=== PATIENT | male | born 1945 | race Caucasian/White ===

== ENCOUNTER 2019-12-19 10:05 | Outpatient (CLI) | payer OTHER, SELFPAY ==
--- NOTE | 2019-12-19 10:21 | XR_ITS ---
WS: [id number] CHEST 2 VIEWS HISTORY: Shortness of breath COMPARISON: 09/20/2015 Lungs: Hyperinflated lungs with bullous disease in the upper lung mcknight. Marked flattening of the di aphragms. No nodules or pneumonia. Cardiac size: Normal. Mediastinum/Aorta: Mild atherosclerosis aorta. Mild enlargement of the pulmonary arteries. Bones: Normal. XR/XR chest 2V* [id number] IMPRESSION: 1. Severe bullous emphysema. 2. Mild pulmonary hypertension suspected. 3. Partially calcified aorta.
[2019-12-19 11:30] LABS: Basophils # 0.1 10^3/uL (0.0-0.1); Basophils % 0.9 %; Eosinophils # 0.1 10^3/uL (0.0-0.8); Eosinophils % 2.1 %; Hematocrit 48.7 % (42.0-52.0); Hemoglobin 15.3 g/dL (11.7-16.6); Lymphocytes # 0.8 10^3/uL (0.8-4.8); Lymphocytes % 13.9 %; Mean Corpuscular HGB Conc 31.4 g/dL (30.0-36.0); Mean Corpuscular Hemoglobin 28.8 pg (28.0-34.0); Mean Corpuscular Volume 91.5 fL (80-94); Mean Platelet Volume 10.6 fL (7.4-10.4); Monocytes # 0.5 10^3/uL (0.2-0.9); Monocytes % 9.6 %; Neutrophils # 4.1 10^3/uL (1.8-7.7); Neutrophils % 73.1 %; Nucleated Red Blood Cells % 0 %; Platelet Count 145 10^3/cmm (130-400); Red Blood Count 5.32 10^6/uL (4.1-5.3); White Blood Count 5.6 10^3/uL (4.0-10.0)
== END 2019-12-19 10:06 | disposition home or self-care (01) ==
LOC: RAD 10:19
PROVIDERS: Family Provider Family Medicine; PCP Nurse Practitioner; Visit Provider Internal Medicine Critical Care Medicine
DX: R06.02 Shortness of breath (principal); J44.9 Chronic obstructive pulmonary disease, unspecified; I70.0 Atherosclerosis of aorta
CPT/HCPCS: 36415; 71046; 85025

== ENCOUNTER 2020-02-08 09:11 | Outpatient (CLI) | payer OTHER, SELFPAY ==
--- NOTE | 2020-02-08 12:50 | PFTS_ITS ---
Date of Study:02/08/20 Date of Dictation: MECHANICS: Forced vital capacity (FVC) is reduced. Forced expiratory volume in one second (FEV1) is reduced. FEV1/FVC is reduced. FLOW VOLUME LOOP: Reduced flow at all lung volumes with severe scooping. LUNG VOLUMES: Total lung capacity (TLC) is increased. Residual volume (RV) is increased. DIFFUSING CAPACITY FOR CARBON MONOXIDE: Moderately reduced. INTERPRETATION: The pulmonary function tests are consistent with very severe airflow obstruction. Lung volumes are consistent with hyperinflation and air trapping. Gas exchange (DLCO) is moderately reduced. MTDD
== END 2020-02-08 09:12 | disposition home or self-care (01) ==
LOC: RT 09:12
PROVIDERS: PCP Nurse Practitioner; Visit Provider Internal Medicine Critical Care Medicine
DX: J44.9 Chronic obstructive pulmonary disease, unspecified (principal)
CPT/HCPCS: 94010; 94726; 94729

== ENCOUNTER 2020-03-12 14:52 | Outpatient (CLI) | payer OTHER, SELFPAY ==
--- NOTE | 2020-03-12 14:30 | CT_ITS ---
WS: [id number] CT CHEST WITHOUT INTRAVENOUS CONTRAST HISTORY: Shortness of breath TECHNIQUE: Contiguous 5 mm axial imaging performed on the thorax. Coronal and sagittal reformats are submitted. All CT scans at [facility] use at least one of these dose optimization techniq ues: automated exposure control; mA and/or kV adjustment per patient size (includes targeted exams wh ere dose is matched to clinical indication); or iterative reconstruction. CONTRAST: Omnipaque 300; 95 mL IV. DLP: 500.99 mGy.cm COMPARISON: None available. Lungs and central airway: Severe pulmonary hyperexpansion. Extensive bullous and bleb formation. Slig htly spiculated nodule at the LEFT apex measures 12 mm. Pleura: No pleural effusions. There is pleural thickening bilaterally. Some of these areas of pleural thickening containing calcifications. Heart and pericardium: Mildly enlarged cardiac chambers. No pericardial effusion. Mediastinum and isaiah: No mediastinum or hilar adenopathy. Vessels: Mild atherosclerosis aorta. Pulmonary artery size is equal to the aorta. Chest wall and lower neck: No soft tissue masses. Upper abdomen: Incompletely visualized abdominal aortic aneurysm. Aneurysm begins just below the leve l of the SMA. Maximum transverse diameter 5.9 cm. Osseous structures: Mild increase in thoracic kyphosis. Notified Leesa Lin MD at 03/12/2020 4:07 PM. Message LEFT on the nurse line at Dr. Lin's office to review report. CT/CT chest wo con [id number] IMPRESSION: 1. Severe emphysema. 2. Spiculated nodule measures 12 mm LEFT upper lobe. Recommend follow-up in 3 -6 months. 3. Incompletely visualized large abdominal aortic aneurysm begins just below t he level of the SMA with a maximum diameter 5.[address] angiogram abdo javed aorta for further evaluation and characterization.
--- NOTE | 2020-03-12 15:00 | USCV_ITS ---
David Snyder Age: 74 Gender: M : 1945 Exam Date: 03/12/2020 15:08 Ordering Phys: Leesa Lin MD Technologist: DIANNA STONE Exam Location: [facility] – [place], [place] Indication: RV HEART FAILURE BP: / HR: 61 Rhythm: Sinus Technical Quality: Good MEASUREMENTS (Male / Female) Normal Values 2D ECHO LV Diastolic Diameter PLAX 5.4 cm 4.2 - 5.9 / 3.9 - 5.3 cm LV Systolic Diameter PLAX 4.1 cm IVS Diastolic Thickness 1.0 cm 0.6 - 1.0 / 0.6 - 0.9 cm IVS Systolic Thickness 1.3 cm LVPW Diastolic Thickness 1.0 cm 0.6 - 1.0 / 0.6 - 0.9 cm LVPW Systolic Thickness 1.9 cm LVOT Diameter 2.2 cm LV Ejection Fraction 2D Teich 47.3 % LV Ejection Fraction MOD 2C 56.7 % LV Ejection Fraction 2C AL 58.7 % LA Diameter 3.3 cm LA Width 2.5 cm LA Height 4.6 cm RA Width 3.0 cm RA Height 3.7 cm M-MODE LV Diastolic Diameter MM 6.2 cm 4.2 - 5.9 / 3.9 - 5.3 cm LV Systolic Diameter MM 4.8 cm LV Ejection Fraction MM Teich 43.7 % IVS Diastolic Thickness MM 1.2 cm 0.6 - 1.0 / 0.6 - 0.9 cm IVS Systolic Thickness MM 1.4 cm LVPW Diastolic Thickness MM 0.9 cm 0.6 - 1.0 / 0.6 - 0.9 cm LVPW Systolic Thickness MM 1.5 cm Aortic Annulus Diameter 3.5 cm LA Ao Ratio MM 1.0 MV E Point Septal Separation 0.9 cm DOPPLER AV Peak Velocity 104.0 cm/s LVOT Peak Velocity 80.0 cm/s AV Area Cont Eq vti 2.8 cm squared AV Area Cont Eq pk 2.8 cm squared MV Peak Velocity 113.0 cm/s MV Area PHT 8.8 cm squared Mitral E to A Ratio 6.8 MV E' Velocity 2.0 cm/s Mitral E to MV E' Ratio 40.5 Mitral E to LV E' Lateral Ratio 45.7 Mitral E to LV E' Septal Ratio 37.6 TR Peak Velocity 135.0 cm/s TR Peak Gradient 7.3 mmHg Right Atrial Pressure 3.0 mmHg Pulmonary Artery Systolic Pressu 10.3 mmHg PV Peak Velocity 83.0 cm/s RV Acceleration Time 0.1 s FINDINGS Left Ventricle Diffuse hypokinesia left ventricle with ejection fraction around 43%. Small aneurysmal dilatation of the LV apex Right Ventricle Normal right ventricular size and systolic function. Right Atrium Normal right atrial size. Left Atrium Normal left atrial size. Mitral Valve Thickened mitral valve. Trace mitral valve regurgitation. Aortic Valve Thickened aortic valve. Mild aortic valve regurgitation. Tricuspid Valve Trace tricuspid valve regurgitation. Pulmonic Valve Trace pulmonary valve regurgitation. Pericardium No pericardial effusion. Aorta Normal aortic annulus size. CONCLUSIONS Diffuse hypokinesia left ventricle with ejection fraction around 43%. Small aneurysmal dilatation of the LV apex Thickened mitral valve. Trace mitral valve regurgitation. Thickened aortic valve. Mild aortic valve regurgitation. Trace tricuspid valve regurgitation. Trace pulmonary valve regurgitation. Estimated pulmonary artery peak systolic pressure of 10 mmHg, could be misleading because of the poor Doppler signals There is no pericardial effusion. There are no intracardiac masses. Compared to the study from 03/28/2015, there is significant improvement of the LV ejection fraction from 25% to 43% Dr Adria Phillips MD [facility] (Electronically Signed) Final Date: 12 March 2020 23:53 S
== END 2020-03-12 14:53 | disposition home or self-care (01) ==
PROVIDERS: PCP Nurse Practitioner; Visit Provider Internal Medicine Critical Care Medicine
DX: R06.02 Shortness of breath (principal); I50.810 Right heart failure, unspecified; I08.3 Combined rheumatic disorders of mitral, aortic and tricuspid valves; J44.9 Chronic obstructive pulmonary disease, unspecified
CPT/HCPCS: 71250; 93306

== ENCOUNTER 2020-03-25 10:55 | Outpatient (CLI) | payer OTHER, SELFPAY ==
[2020-03-25 12:06] LABS: Alanine Aminotransferase 16 U/L (0-41); Albumin Level 3.9 g/dL (3.5-5.2); Alkaline Phosphatase 78 IU/L (40-130); Anion Gap 12.4 (5-19); Aspartate Amino Transferase 15 U/L (0-40); Blood Urea Nitrogen 25 mg/dL (8-23); Calcium 8.5 mg/dL (8.5-10.5); Carbon Dioxide 29 mmol/L (22-29); Chloride 103 mmol/L (98-107); Globulin 3.3 g/dL (1.3-4.6); Glucose 102 mg/dL (65-115); Osmolality Calculated 287 mOsm/kg (285-295); Potassium 4.4 mmol/L (3.5-5.1); Sodium 140 mmol/L (136-145); Total Bilirubin 0.4 mg/dL (0.15-1.2); Total Protein 7.2 g/dL (6.6-8.7)
== END 2020-03-25 10:56 | disposition home or self-care (01) ==
PROVIDERS: PCP Nurse Practitioner; Visit Provider Internal Medicine Critical Care Medicine
DX: J44.9 Chronic obstructive pulmonary disease, unspecified (principal)
CPT/HCPCS: 80053

== ENCOUNTER 2020-07-05 09:49 | Outpatient (CLI) | payer OTHER, SELFPAY ==
--- NOTE | 2020-07-05 10:15 | CT_ITS ---
WS: [id number] CT scan of the chest without IV contrast, additional two-dimensional coronal and sagittal reconstruct ion was performed. 07/05/2020 Clinical Data: Pulmonary nodule Comparison: CT chest, 03/12/2020. DLP: 617.[address] scans at [facility] use at least one of these dose optimization techniques: automat ed exposure control; mA and/or kV adjustment per patient size (includes targeted exams where dose is matched to clinical indication); or iterative reconstruction. Findings: The left upper lobe shows no nodule. The previously described nodule has resolved. Severe bullous emp hysema seen in the upper lobes. No masses or effusions are seen. There are scattered areas of pleural thickening throughout the lungs . The heart size is normal with no pericardial effusion. There is coronary artery calcification. The trachea bifurcates normally into the bronchi. The pulmonary arterial system and thoracic aorta demons trate no abnormalities or dilatations. There is no axillary or significant mediastinal adenopathy. The upper abdomen demonstrates the abdominal aortic aneurysm which measures 6.4 cm in greatest transv erse diameter. There is a low-density lesion of the right kidney which is probably a 2.[address]/CT chest wo con [id number] Impression: 1. The left upper lobe nodule has resolved. 2. Severe bilateral lateral emphysema. 3. Abdominal aortic aneurysm with greatest transverse dimension of 6.4 cm.
== END 2020-07-05 09:50 | disposition home or self-care (01) ==
LOC: RADWPI 09:52
PROVIDERS: PCP Nurse Practitioner; Visit Provider Internal Medicine Critical Care Medicine
DX: R91.1 Solitary pulmonary nodule (principal); J43.9 Emphysema, unspecified; I71.4 Abdominal aortic aneurysm, without rupture
CPT/HCPCS: 71250

== ENCOUNTER 2020-09-16 10:04 | Inpatient (IN) | payer OTHER, MEDICARE, SELFPAY ==
[2020-09-16] VITALS (19 sets, daily range): BP systolic 110–151; BP diastolic 70–95; PULSE 87–117; RESP 10–32; TEMP 36.6–36.9; O2SAT 90–98; BMI 19.9
--- NOTE | 2020-09-16 10:25 | XR_ITS ---
WS: [id number] Exam: XR chest 1V portable [id number] Date/Time of Exam: 09/16/2020 10:31 AM Reason For Exam: dyspena Comparison 12/19/2019. There is infiltrate in the lingula and left lower lobe suggesting pneumonia. Areas of plaque atelecta sis in both lung bases. Advanced changes of bullous emphysema in the mid and upper lung zones. Heart size is normal. The mediastinum is not widened. No pneumothorax or pleural effusion. Ill-defined nodu lar density superimposing the right lower lung zone which may represent a nipple shadow. XR/XR chest 1V portable [id number] IMPRESSION: 1. Infiltrate in the lingula and left lower lobe suggesting pneumonia. 2. Areas of plaque atelectasis in the bilateral lower lung zones. 3. Advanced emphysematous changes.
--- NOTE | 2020-09-16 10:26 | CT_ITS ---
WS: [id number] CTA OF THE CHEST WITH PULMONARY EMBOLISM PROTOCOL TECHNIQUE: High-resolution contrast enhanced CTA of the chest with coronal and sagittal reformatted i mages with pulmonary embolism protocol. MIP images are also reviewed. CLINICAL INFORMATION: dyspnea/COVID COMPARISON: July 05, 2020 DLP: 547.[address] scans at [facility] use at least one of these dose optimization techniques: automat ed exposure control; mA and/or kV adjustment per patient size (includes targeted exams where dose is matched to clinical indication); or iterative reconstruction. FINDINGS: Advanced chronic emphysematous changes. Proximal main pulmonary arteries are normal. Normal segmental and subsegmental pulmonary arteries. No evidence of pulmonary embolus. Aortic calcification. Normal caliber thoracic aorta. Interstitial thickening with interstitial infilt rates in the left greater than right lower lobe. Patchy infiltrates in the left lower lobe and lingul a. Upper lobes are well aerated. No mediastinal or hilar lymphadenopathy. No axillary lymphadenopathy . Adrenal glands are normal. Normal GE junction. Upper abdominal aortic aneurysm measuring 4.3 x 5.9 cm AP by transverse partially visualized. This appears unchanged since July 05, 2020 CT/CT angio chest PE protcl [id number] IMPRESSION: 1. Proximal main pulmonary arteries are normal. No evidence of pulmonary embol us. 2. Advanced chronic emphysematous changes. 3. Interstitial infiltrates the left greater than right lower lobes. Patchy in filtrates in the lingula. Recommend correlation for pneumonia. 4. Abdominal aortic aneurysm partially visualized upper abdomen measuring 4.3 x 5.9 cm appears unchanged from the prior chest CT July 05, 2020. This can be followed up with CTA abdomen pelvis Notified Keith Mathews DO at 09/16/2020 12:49 PM.
--- NOTE | 2020-09-16 10:27 | W.ED.COVID ---
HPI - COVID General: Chief Complaint: COVID symptoms Stated Complaint: COVID, DYSPNEA Time Seen by Provider: 09/16/20 10:08 Triage information: Has fever, cough or shortness of breath. Exposure to COVID + person last 14 days History of Present Illness: HPI Narrative: 74-year-old male with a history of COPD and congestive heart failure states he tested +1-week ago for Covid at [facility]. He was also given a medication there I presume it was probably IV these dexamethasone were calling to get the old records. He is chronically on 2-3 L by nasal cannula at home he had increase it to 6 L. EMS reports they gave him a nebulizer prior to arrival that did help some. They reported on arrival there his oxygen sat was around 81% on 2 L by nasal cannula. Patient has a history of asbestosis with exposure in the late 60s early 70s. MD complaint: known COVID positive Prior covid testing: yes, results known Prior testing date: 09/09/20 COVID 19 common symptoms: positive fever(s), chills, cough, productive cough and dyspnea; negative throat pain, nasal congestion, nausea, vomiting or diarrhea COVID 19 other sytmptoms: positive requiring more oxygen and respiratory distress; negative chest pain Onset (ago): hour(s) Severity: moderate Pertinent comorbid conditions: diabetes, hypertension, COPD/respiratory disease, chronic kidney disease and recent ED visit for same complaint COVID Results: No Data to Display Review of Systems Const: Reports: fever(s) ENMT: Denies: throat pain, ear or mastoid pain, nasal discharge or nasal congestion Card: Denies: chest pain, edema, dyspnea on exertion or orthopnea Resp: Reports: dyspnea and productive cough GI: Denies: abdominal pain, nausea, vomiting, hematemesis, coffee ground emesis, diarrhea, constipation, bloating, hematochezia or melena : Denies: flank pain, dysuria, urinary frequency or urinary urgency Skin/Breast: Denies: rash or pruritus [facility] ED PFSH: Medical History (Updated 09/16/20 @ 14:01 by Danny Hansen MD) Anxiety CHF (congestive heart failure) COPD (chronic obstructive pulmonary disease) Diabetes 1.5, managed as type 2 Surgical History H/O eye surgery Hx of tonsillectomy Family History Father CAD (coronary artery disease) Diabetes Cancer Colon Mother Diabetes Social History Smoking and tobacco status: former smoker Quit status (tobacco): has quit using tobacco Year quit tobacco: 2005 - 2PPD x 50 Years Second hand smoke exposure: No Alcohol intake: former Lives independently: Yes Household members: spouse Marital status: service: Yes Current occupational status: retired History of recent travel: No Current gender identity: Male Physical Exam Const: COMMON NORMALS: no acute distress GENERAL APPEARANCE: cooperative and comfortable ORIENTATION/CONSCIOUSNESS: Yes awake, Yes oriented to person, Yes oriented to place and Yes oriented to time HENMT: COMMON NORMALS: normocephalic, atraumatic and hearing grossly normal bilaterally HEAD & SCALP: normocephalic and atraumatic Neck/C-Spine: COMMON NORMALS: no JVD Resp: COMMON NORMALS: normal respiratory effort, No retractions, No use of accessory muscles and clear to auscultation bilaterally AUSCULTATION: clear to auscultation bilaterally Cardio: COMMON NORMALS: no JVD, regular rate, regular rhythm and No murmurs present (Cardio) RATE: regular rate RHYTHM: regular rhythm GI: COMMON NORMALS: Soft to palpation and No hepatosplenomegaly present AUSCULTATION: Yes normoactive bowel sounds PALPATION: Yes Soft to palpation, No Tenderness to palpation present (GI), No Guarding due to palpation present (GI) and Yes No hepatosplenomegaly present Extremity: COMMON NORMALS: normal to inspection, capillary refill normal, no clubbing, cyanosis or edema, no calf tenderness and no pedal edema Neuro: SENSORIUM/ORIENTATION: Yes oriented to person, Yes oriented to place and Yes oriented to time Skin: COMMON NORMALS: no rashes or lesions noted GENERAL SKIN EXAM: no rashes or lesions noted Course Vital Signs: Vital signs: Vital Signs Temperature 98.4 F 09/16/20 13:38 Pulse Rate 106 H 09/16/20 13:38 Respiratory Rate 10 L 09/16/20 13:38 Blood Pressure 127/86 09/16/20 13:38 Pulse Oximetry 94 09/16/20 13:38 MDM - COVID MDM Narrative: Medical decision making narrative: Patient has severe bullous emphysema. Exacerbated by Covid he may have some underlying bacterial pneumonia we will start him on Zosyn and Levaquin discussed with Dr. Mayberry will admit for management and supportive cares antibiotics. Lab Data: Labs: Lab Results 09/16/20 09/16/20 09/16/20 Range/Units 10:16 10:16 10:16 WBC 6.0 (4.0-10.0) 10^3/ uL RBC 4.88 (4.1-5.3) 10^6/u L Hgb 14.6 (11.7-16.6) g/dL Hct 43.7 (42.0-52.0) % MCV 89.5 (80-94) fL MCH 29.9 (28.0-34.0) pg MCHC 33.4 (30.0-36.0) g/dL RDW 12.5 (12.1-15.1) % Plt Count 188 (130-400) 10^3/c mm MPV 10.6 H (7.4-10.4) fL Neut % (Auto) 90.6 % Lymph % (Auto) 2.5 % Lincoln % (Auto) 4.7 % Eos % (Auto) 0.2 % Baso % (Auto) 0.2 % Neut # (Auto) 5.43 (1.8-7.7) 10^3/u L Lymph # (Auto) 0.2 L (0.8-4.8) 10^3/u L Lincoln # (Auto) 0.3 (0.2-0.9) 10^3/u L Eos # (Auto) 0.0 (0.0-0.8) 10^3/u L Baso # (Auto) 0.0 (0.0-0.1) 10^3/u L Nucleated RBC % (a uto) 0 % Nucleated RBCs # 0.0 /100WBC D-Dimer 3.80 H (0-0.59) ug/mIFE U Specimen Type Sample Site ABG pH (7.35-7.45) ABG pCO2 (35-45) mmHg ABG pO2 (80.0-100.0) mmH g ABG HCO3 (22-26) mmol/L ABG O2 Saturation ABG Base Excess (-2.0-2.0) mmol/ L Bala Test A-a O2 Gradient (5-10) mmHg Hematocrit (42-52) % Hgb O2 Saturation (95-100) % Carboxyhemoglobin (0.4-20.1) %THgb Methemoglobin (0.4-1.5) % Total Hemoglobin (14-18) g/dL Ionized Calcium (1.1-1.4) mmol/L O2 Delivery Device O2 Liters/Min % [employer] Machine ID Sodium 138 (136-145) mmol/L Potassium 5.0 (3.5-5.1) mmol/L Chloride 99 (98-107) mmol/L Carbon Dioxide 27 (22-29) mmol/L Anion Gap 17.0 (5-19) BUN 24 H (8-23) mg/dL Creatinine 1.1 (0.7-1.2) mg/dL GFR Calculation Not Reportable Glucose 194 H (65-115) mg/dL Calculated Osmolal ity 295 (285-295) mOsm/k g Calcium 8.9 (8.5-10.5) mg/dL Total Bilirubin 0.9 (0.15-1.2) mg/dL AST 11 (0-40) U/L ALT 17 (0-41) U/L Alkaline Phosphata se 60 (40-130) IU/L Creatine Kinase 41 (39-308) U/L C-Reactive Protein 115.6 H (0.0-4.9) mg/L Total Protein 7.8 (6.6-8.7) g/dL Albumin 3.2 L (3.5-5.2) g/dL Globulin 4.6 (1.3-4.6) g/dL 09/16/20 Range/Units 10:39 WBC (4.0-10.0) 10^3/ uL RBC (4.1-5.3) 10^6/u L Hgb (11.7-16.6) g/dL Hct (42.0-52.0) % MCV (80-94) fL MCH (28.0-34.0) pg MCHC (30.0-36.0) g/dL RDW (12.1-15.1) % Plt Count (130-400) 10^3/c mm MPV (7.4-10.4) fL Neut % (Auto) % Lymph % (Auto) % Lincoln % (Auto) % Eos % (Auto) % Baso % (Auto) % Neut # (Auto) (1.8-7.7) 10^3/u L Lymph # (Auto) (0.8-4.8) 10^3/u L Lincoln # (Auto) (0.2-0.9) 10^3/u L Eos # (Auto) (0.0-0.8) 10^3/u L Baso # (Auto) (0.0-0.1) 10^3/u L Nucleated RBC % (a uto) % Nucleated RBCs # /100WBC D-Dimer (0-0.59) ug/mIFE U Specimen Type Arterial Sample Site Radial, left ABG pH 7.42 (7.35-7.45) ABG pCO2 41.5 (35-45) mmHg ABG pO2 80.9 (80.0-100.0) mmH g ABG HCO3 26.8 H (22-26) mmol/L ABG O2 Saturation 96.0 ABG Base Excess 2.0 (-2.0-2.0) mmol/ L Bala Test Pos A-a O2 Gradient 2.0 L (5-10) mmHg Hematocrit 46.1 (42-52) % Hgb O2 Saturation 94.1 L (95-100) % Carboxyhemoglobin 1.1 (0.4-20.1) %THgb Methemoglobin 0.8 (0.4-1.5) % Total Hemoglobin 15.0 (14-18) g/dL Ionized Calcium 1.2 (1.1-1.4) mmol/L O2 Delivery Device Nc O2 Liters/Min 5.0 % [employer] Cutter Machine ID Cak Sodium 137.0 (136-145) mmol/L Potassium 4.7 (3.5-5.1) mmol/L Chloride (98-107) mmol/L Carbon Dioxide (22-29) mmol/L Anion Gap (5-19) BUN (8-23) mg/dL Creatinine (0.7-1.2) mg/dL GFR Calculation Glucose 192.0 H (65-115) mg/dL Calculated Osmolal ity (285-295) mOsm/k g Calcium (8.5-10.5) mg/dL Total Bilirubin (0.15-1.2) mg/dL AST (0-40) U/L ALT (0-41) U/L Alkaline Phosphata se (40-130) IU/L Creatine Kinase (39-308) U/L C-Reactive Protein (0.0-4.9) mg/L Total Protein (6.6-8.7) g/dL Albumin (3.5-5.2) g/dL Globulin (1.3-4.6) g/dL COVID Results: No Data to Display Discharge Plan Discharge Patient Disposition: Admitted As Inpatient Admit Provider: Danny Hansen Clinical Impression: Acute exacerbation of chronic obstructive pulmonary disease, H/O asbestos exposure, COVID-19 Condition: Stable Coding Level of Care Code ED Social Work Manager for Jacklyn Brown
[2020-09-16 10:32] LABS: Basophils % 0.2 %; Eosinophils % 0.2 %; Hematocrit 43.7 % (42.0-52.0); Hemoglobin 14.6 g/dL (11.7-16.6); Lymphocytes # 0.2 10^3/uL (0.8-4.8); Lymphocytes % 2.5 %; Mean Corpuscular HGB Conc 33.4 g/dL (30.0-36.0); Mean Corpuscular Hemoglobin 29.9 pg (28.0-34.0); Mean Corpuscular Volume 89.5 fL (80-94); Mean Platelet Volume 10.6 fL (7.4-10.4); Monocytes # 0.3 10^3/uL (0.2-0.9); Monocytes % 4.7 %; Neutrophils # 5.43 10^3/uL (1.8-7.7); Neutrophils % 90.6 %; Nucleated Red Blood Cells % 0 %; Platelet Count 188 10^3/cmm (130-400); Red Blood Count 4.88 10^6/uL (4.1-5.3); Red Cell Distribution Width 12.5 % (12.1-15.1)
[2020-09-16 10:48] LABS: Alanine Aminotransferase 17 U/L (0-41); Albumin Level 3.2 g/dL (3.5-5.2); Alkaline Phosphatase 60 IU/L (40-130); Aspartate Amino Transferase 11 U/L (0-40); Blood Urea Nitrogen 24 mg/dL (8-23); C Reactive Protein 115.6 mg/L (0.0-4.9); Calcium 8.9 mg/dL (8.5-10.5); Carbon Dioxide 27 mmol/L (22-29); Chloride 99 mmol/L (98-107); Creatine Phosphokinase 41 U/L (39-308); Globulin 4.6 g/dL (1.3-4.6); Glucose 194 mg/dL (65-115); Osmolality Calculated 295 mOsm/kg (285-295); Sodium 138 mmol/L (136-145); Total Bilirubin 0.9 mg/dL (0.15-1.2); Total Protein 7.8 g/dL (6.6-8.7)
[2020-09-16 10:51] LABS: ABG PCO2 41.5 mmHg (35-45); ABG PH Result 7.42 (7.35-7.45); Arterial Blood Gas Hematocrit 46.1 % (42-52); Blood Gas Allen Test Pos; Blood Gas Operator Identificat CAK; Blood Gas Sample Site Radial, left; Blood Gas Sample Type Arterial; Carboxyhemoglobin 1.1 %THgb (0.4-20.1); HCO3 ABG 26.8 mmol/L (22-26); HGB O2 Sat 94.1 % (95-100); Ionized Calcium Level - ABG 1.2 mmol/L (1.1-1.4); Methemoglobin 0.8 % (0.4-1.5); Oxygen Device NC; PO2 ABG 80.9 mmHg (80.0-100.0); Potassium Level - ABG 4.7 mmol/L (3.5-5.0)
[2020-09-16] MEDS: dexamethasone 4 mg/mL INJ 6 MG IVP (11:00)
[2020-09-16] MEDS: iohexol 350 mg/mL 100 mL Btl IV (12:27)
[2020-09-16] MEDS: piperacillin-tazobactam 3.375 GM in sodium chloride 0.9% (plus) 50 ML IV ×2 (13:08→18:13)
[2020-09-16] MEDS: levofloxacin-dextrose 5 % 750 MG/150 ML PREMIX 100 MG IV (13:08)
--- NOTE | 2020-09-16 13:45 | P.HP_ITS ---
Providers/Chief Complaint Admitting Physician: Danny Hansen MD Primary Care Provider: PATSY Woods Chief Complaint: COVID, DYSPNEA History of Present Illness David Snyder is a 74 year old male with a past medical history of gold class B COPD, on 2 L nasal cannula, [id number] history of smoking, quit smoking over 15 years ago, last FEV1 over FVC was 27%, moderate reduction in DLCO, emphysema, history of asbestos exposure with pleural thickening, systolic heart failure EF of 43% with global hypokinesia and aneurysmal dilation of the apex, type 2 diabetes mellitus, who presents to [facility] due to worsening shortness of breath,, fevers, fatigue, malaise, after testing positive for Covid at [facility] roughly a week ago. Patient tells me that he has been feeling more short of breath, more shortness of breath with exertion, fatigue, m alaise, nonproductive cough. Denies any chest pain, denies palpitations, denies hematemesis, denies diarrhea, denies any loss of taste, denies any loss of smell. In the emergency room patient was found to be in hypoxic respiratory failure, placed on BiPAP, currently on high flow, doing well on high flow, denying any shortness of breath, not respiratory distress. Review of Systems Const: Reports: fever(s); Denies: chills, fatigue or malaise Eyes: Denies: change in vision or blurry vision ENMT: Denies: nasal congestion Card: Denies: chest pain or palpitations Resp: Reports: dyspnea; Denies: productive cough, non-productive cough or wheezing GI: Denies: abdominal pain, nausea, vomiting, hematemesis, diarrhea, constipation, hematochezia or melena : Denies: flank pain, difficulty urinating, dysuria or urinary frequency Musc: Denies: neck pain or back pain Skin/Breast: Denies: rash Neuro: Denies: headache(s), dizziness or vertigo Psych: Denies: anxiety or depression Endo: Denies: polyuria or polydipsia Medications/Allergies Home Medications Medication Instructions Recorded Confirmed Last Taken Type Qunal 100 mg PO DAILY 12/19/19 09/16/20 09/15/20 History albuterol sulfate 2.5 mg INHALATION Q6H PRN 12/19/19 09/16/20 Unknown History albuterol sulfate 90 mcg/actuation 2 puff INHALATION Q6H PRN 12/19/19 09/16/20 Unknown History aerosol inhaler cinnamon bark 500 mg capsule 1,000 mg PO DAILY@ cap 12/19/19 09/16/20 09/15/20 History furosemide 40 mg tablet 40 mg PO DAILY@12/19/19 09/16/20 09/15/20 History lorazepam 1 mg tablet 1 mg PO TID PRN 12/19/19 09/16/20 Unknown History potassium chloride 20 mEq 20 meq PO DAILY@12/19/19 09/16/20 09/15/20 History tablet,extended release procyanidolic oligomers 50 mg 200 mg PO DAILY@ cap 12/19/19 09/16/20 09/15/20 History capsule budesonide-formoterol HFA 160 2 puff INHALATION BID #10.2 gm 03/26/20 09/16/20 09/15/20 Rx mcg-4.5 mcg/actuation aerosol inhaler cetirizine 10 mg PO DAILY@09/16/20 09/16/20 09/15/20 History cholecalciferol (vitamin D3) 50 mcg PO DAILY@09/16/20 09/16/20 09/15/20 History [Vitamin D3] prednisone 5 mg PO DAILY 09/16/20 09/16/20 Unknown History sertraline 75 mg PO DAILY 09/16/20 09/16/20 Unknown History tiotropium bromide [Spiriva 2 inh INHALATION DAILY@09/16/20 09/16/20 09/15/20 History Respimat] Allergies Allergy/AdvReac Type Severity Reaction Status Date / Time No Known Allergies Allergy Verified 03/25/20 10:42 PFSH Acute PFSH: Medical History (Updated 09/16/20 @ 14:01 by Danny Hansen MD) Anxiety CHF (congestive heart failure) COPD (chronic obstructive pulmonary disease) Diabetes 1.5, managed as type 2 Surgical History H/O eye surgery Hx of tonsillectomy Family History Father CAD (coronary artery disease) Diabetes Cancer Colon Mother Diabetes Social History Smoking and tobacco status: former smoker Quit status (tobacco): has quit using tobacco Year quit tobacco: 2005 - 2PPD x 50 Years Second hand smoke exposure: No Alcohol intake: former Lives independently: Yes Household members: spouse Marital status: service: Yes Current occupational status: retired History of recent travel: No Current gender identity: Male Vitals/I&O/Wt Last Vital Signs Temp 98.4 F 09/16/20 13:38 Pulse 106 H 09/16/20 13:38 Resp 10 L 09/16/20 13:38 BP 127/86 09/16/20 13:38 Pulse Ox 94 09/16/20 13:38 Weight last 48 hrs Weight 61.235 kg Physical Exam Const: COMMON NORMALS: no acute distress and patient oriented x3 GENERAL APPEARANCE: cooperative and comfortable HENMT: COMMON NORMALS: normocephalic HEAD & SCALP: normocephalic Eye: COMMON NORMALS: Equal, round and reactive pupils present and EOMs intact bilaterally GENERAL EYE: appearance normal, both eyes and all related structures PUPIL: Yes Equal, round and reactive pupils present Neck/C-Spine: COMMON NORMALS: full ROM, no lymphadenopathy, no JVD and Thyroid normal THYROID: Thyroid normal Lymph: LYMPHATIC: no lymphadenopathy noted Resp: COMMON NORMALS: normal respiratory effort, No retractions and No use of accessory muscles AUSCULTATION: wheezes and diminished lung sounds bilateral in the lower lung mcknight Cardio: COMMON NORMALS: no JVD, regular rate, regular rhythm, S1 normal heart sound present, S2 normal heart sound present, No gallops present (Cardio), No clicks present (Cardio) and No murmurs present (Cardio) RATE: regular rate RHYTHM: regular rhythm HEART SOUNDS: S1 normal heart sound present and S2 normal heart sound present GI: COMMON NORMALS: Normal to inspection, nondistended, normoactive bowel s ounds present, Soft to palpation, non-tender and No hepatosplenomegaly present PALPATION: Yes Soft to palpation and Yes No hepatosplenomegaly present Extremity: COMMON NORMALS: normal to inspection, full ROM and no pedal edema Neuro: COMMON NORMALS: patient oriented x3, CN's II-XII intact bilaterally, moves all extremities and no focal motor deficits Psych: COMMON NORMALS: mental status grossly normal, Normal thought process present and cooperative THOUGHT PROCESS: Normal thought process present Data : 09/16/20 10:16 09/16/20 10:16 Micro: Microbiology 09/16/20 12:12 Blood Culture - Preliminary Blood SPECIMEN COLLECTED 09/16/20 10:16 Blood Culture - Preliminary Blood SPECIMEN COLLECTED A&P Assessment and plan (1) Acute respiratory failure with hypoxia: -Secondary to COPD, COVID-19 pneumonia, secondary bacterial pneumonia Plan: -Admit to viral ICU -Patient is DNR/DNI, confirmed with patient multiple times -Full dose Lovenox for hypercoagulability prophylaxis -We will start him on Decadron -Insulin sliding scale, monitor blood sugars -Convalescent plasma -Remdesivir -Broad-spectrum antibiotic therapy vancomycin, Zosyn, azithromycin -Sputum cultures, blood cultures, urine bacterial antigens -Patient tested positive followed [place], will repeat rapid Covid, and Covid PCR -Monitor respiratory status closely -High flow during the day, BiPAP during the night, BiPAP as needed -Echocardiogram, Lasix 40 mg IV daily, daily I's and O's -Vitamin C, zinc -Advair, Spiriva, albuterol -Incentive spirometer use, Acapella -Encouraged to get up out of bed Status: Acute (2) Pneumonia due to COVID-19 virus: Status: Acute (3) Secondary bacterial pneumonia: Status: Acute (4) Systolic CHF: Status: Acute (5) Acute exacerbation of chronic obstructive pulmonary disease: Status: Acute (6) H/O asbestos exposure: Status: Acute Attestations Medical Necessity Statement*: Patient requires hospitalization, inpatient, g reater than 2 midnights, for acute hypoxic respiratory failure secondary to COVID-19 pneumonia, secondary bacterial pneumonia, COPD exacerbation, required ICU admission Coding Level of Care Code Acute Director Of Rehabilitation for [facility] Diagnoses Acute respiratory failure with hypoxia J96.01 Pneumonia due to COVID-19 virus U07.1; J12.89 Secondary bacterial pneumonia J15.9 Systolic CHF I50.20 Acute exacerbation of chronic obstructive pulmonary disease J44.1 H/O asbestos exposure Z77.090
--- NOTE | 2020-09-16 14:13 | USCV_ITS ---
David Snyder Age: 74 Gender: M : 1945 Exam Date: 09/16/2020 16:11 Ordering Phys: Danny Hansen MD Technologist: Michael Elizabeth [place] [facility] [place] SOB BP: 112 / 77 HR: 107 Rhythm: Sinus Technical Quality: Fair MEASUREMENTS (Male / Female) Normal Values 2D ECHO LV Diastolic Diameter PLAX 5.5 cm 4.2 - 5.9 / 3.9 - 5.3 cm LV Systolic Diameter PLAX 4.2 cm IVS Diastolic Thickness 1.1 cm 0.6 - 1.0 / 0.6 - 0.9 cm IVS Systolic Thickness 1.7 cm LVPW Diastolic Thickness 1.3 cm 0.6 - 1.0 / 0.6 - 0.9 cm LVPW Systolic Thickness 1.6 cm LVOT Diameter 2.0 cm LV Ejection Fraction 2D Teich 46.4 % LV Ejection Fraction MOD 2C 27.5 % LV Ejection Fraction 2C AL 26.9 % LA Diameter 3.3 cm LA Width 3.9 cm LA Height 4.5 cm RA Width 5.1 cm RA Height 3.8 cm Aorta at Sinotubular Diameter 2.8 cm M-MODE LV Diastolic Diameter MM 5.9 cm 4.2 - 5.9 / 3.9 - 5.3 cm LV Systolic Diameter MM 4.6 cm LV Ejection Fraction MM Teich 44.4 % IVS Diastolic Thickness MM 1.4 cm 0.6 - 1.0 / 0.6 - 0.9 cm IVS Systolic Thickness MM 1.8 cm LVPW Diastolic Thickness MM 1.3 cm 0.6 - 1.0 / 0.6 - 0.9 cm LVPW Systolic Thickness MM 1.7 cm RV Diastolic Diameter MM 2.2 cm Aortic Annulus Diameter 3.6 cm LA Ao Ratio MM 0.9 MV E Point Septal Separation 1.6 cm DOPPLER AV Peak Velocity 97.0 cm/s LVOT Peak Velocity 77.0 cm/s AV Area Cont Eq vti 2.5 cm squared AV Area Cont Eq pk 2.6 cm squared MV Area PHT 5.4 cm squared Mitral E to A Ratio 2.4 MV E' Velocity 63.5 cm/s Mitral E to MV E' Ratio 8.8 Mitral E to LV E' Lateral Ratio 9.4 Mitral E to LV E' Septal Ratio 8.2 TR Peak Velocity 276.3 cm/s TR Peak Gradient 30.5 mmHg Right Atrial Pressure 3.0 mmHg Pulmonary Artery Systolic Pressu 33.5 mmHg PV Peak Velocity 85.0 cm/s FINDINGS Left Ventricle Mildly dilated left ventricle. LV systolic function is moderate to severely reduced with EF of 30 to 35%. Moderate global hypokinesis is seen. Severe hypokinesis of anterolateral, inferolateral and anterior patel. Jackpot is aneurysmal. Right Ventricle The right ventricle is normal in size and function. Right Atrium The right atrium is normal in size. Left Atrium The left atrium is normal in size. Mitral Valve Thickened mitral valve. There is no mitral regurgitation. Aortic Valve Structurally normal aortic valve without significant sclerosis or stenosis. There is mild to moderate aortic regurgitation. Tricuspid Valve Structurally normal tricuspid valve without significant stenosis or regurgitation. Insufficient TR jet to calculate RVSP. Pulmonic Valve Structurally normal pulmonic valve without significant stenosis. There is trace pulmonic regurgitation. Pericardium Normal pericardium without effusion. Aorta Normal ascending aorta dimension. CONCLUSIONS Left ventricle is mildly dilated. LV systolic function is moderate to severely reduced with EF of 30 to 35%. Above-mentioned regional wall motion abnormalities are seen. Mild to moderate aortic regurgitation is seen. Trace pulmonic regurgitation is seen. Compared to prior echocardiogram from 03/12/2020, LV function is reduced to 30 to 35% now. Ilya Rojo MD (Electronically Signed) Final Date: 16 September 2020 19:03 S
[2020-09-16] MEDS: ipratropium-albuterol 3 mL Neb INHALATION ×2 (15:15→20:06)
[2020-09-16] MEDS: azithromycin 500 MG in sodium chloride 0.9% 250 ML 250 MG IV (15:39)
[2020-09-16] MEDS: vancomycin 1,000 MG in sodium chloride 0.9% 250 ML 250 MG IV (15:42)
[2020-09-16] MEDS: FUROsemide 10 mg/mL SDV 4mL 40 MG IVP (15:43)
[2020-09-16] MEDS: remdesivir 200 MG in sodium chloride 0.9% (100 ml) 100 ML 100 MG IV (17:47)
[2020-09-16] MEDS: enoxaparin 60 mg/0.6 mL Syringe SUBCUT (17:47)
[2020-09-16] MEDS: ascorbic acid 500 mg Tablet 1000 MG PO (17:53)
[2020-09-16 18:12] LABS: Glucose Point of Care 184 mg/dL (70-110)
[2020-09-16 18:22] LABS: NT Pro B Type Natriuretic Pept 4395 pg/mL (0-450); Procalcitonin 0.16 ng/mL (0-0.5)
[2020-09-16] MEDS: acetaminophen 325 mg Tablet 650 MG PO (21:13)
[2020-09-16] MEDS: LORazepam 0.5 mg Tablet 1 MG PO (21:14)
[2020-09-16 22:10] LABS: Glucose Point of Care 239 mg/dL (70-110)
[2020-09-17] VITALS (25 sets, daily range): BP systolic 96–124; BP diastolic 57–76; PULSE 85–115; RESP 14–24; TEMP 36.4–36.8; O2SAT 90–96
[2020-09-17] MEDS: ipratropium-albuterol 3 mL Neb INHALATION ×6 (00:30→21:12)
--- NOTE | 2020-09-17 02:30 | PC.NURSE ---
ASSUMING CARE Patient lying in bed talking to his on the phone. Patient is alert and oriented x 4. HHFNC at 40L and 80% and patients oxygen saturation in low 90s. Zosyn running. Patients is asking nurse questions about oxygen delivery method. Patient is okay with nurse answering questions.
[2020-09-17] MEDS: piperacillin-tazobactam 3.375 GM in sodium chloride 0.9% (plus) 50 ML IV ×3 (03:54→18:24)
[2020-09-17] MEDS: enoxaparin 60 mg/0.6 mL Syringe SUBCUT ×2 (04:03→17:30)
[2020-09-17 04:37] LABS: ABG PCO2 41.8 mmHg (35-45); ABG PH Result 7.43 (7.35-7.45); Arterial Blood Gas Hematocrit 39.7 % (42-52); Base Excess ABG 3.2 mmol/L (-2.0-2.0); Blood Gas Allen Test Pos; Blood Gas Sample Type Arterial; HCO3 ABG 27.9 mmol/L (22-26); PO2 ABG 84.9 mmHg (80.0-100.0)
[2020-09-17 05:16] LABS: Hematocrit 37.2 % (42.0-52.0); Hemoglobin 12.2 g/dL (11.7-16.6); Lymphocytes # 0.1 10^3/uL (0.8-4.8); Lymphocytes % 3.9 %; Mean Corpuscular HGB Conc 32.8 g/dL (30.0-36.0); Mean Corpuscular Hemoglobin 29.9 pg (28.0-34.0); Mean Corpuscular Volume 91.2 fL (80-94); Mean Platelet Volume 10.8 fL (7.4-10.4); Monocytes # 0.2 10^3/uL (0.2-0.9); Monocytes % 8.1 %; Neutrophils # 2.46 10^3/uL (1.8-7.7); Neutrophils % 86.6 %; Nucleated Red Blood Cells % 0 %; Platelet Count 141 10^3/cmm (130-400); Red Blood Count 4.08 10^6/uL (4.1-5.3); Red Cell Distribution Width 12.6 % (12.1-15.1); White Blood Count 2.8 10^3/uL (4.0-10.0)
[2020-09-17 05:43] LABS: D Dimer 2.39 ug/mIFEU (0-0.59)
--- NOTE | 2020-09-17 05:49 | PC.NURSE ---
ANXIETY Patient expressed to nurse that he takes 1 mg lorazepam each night before bedtime. Nurse called Dr. Hand, order for 1 mg lorazepam PRN at bedtime. Ativan given and patient has slept well this shift and expresses that it helped him.
--- NOTE | 2020-09-17 05:53 | PC.NURSE ---
SHIFT SUMMARY Patient has been alert and oriented this shift and has rested well. Patient given 1 mg PO ativan for anxiety last night. 800 mL urine output. No complaints after PRN tylenol given for abdominal pain last night and patient expresses no needs at this time.
--- NOTE | 2020-09-17 05:54 | PC.NURSE ---
DAUGHTER CALLED Patients daughter, Felecia, called last night to check on her father. Patient asked if he was okay with nurse sharing information with his daughter since not listed. Patients states yes and wants her added to list to know information regarding his care while in the hospital. Patients daughter and nurse discussed HHFNC settings, ABG, and the patients anxiety at bedtime. Daughter states that she would relay update to the patients to help her understand the oxygen delivery method the patient was on.
[2020-09-17 06:10] LABS: C Reactive Protein 92.3 mg/L (0.0-4.9); Phosphorus 4.7 mg/dL (2.5-4.5); Thyroid Stimulating Hormone 0.09 uIU/mL (0.27-4.20)
[2020-09-17 06:11] LABS: NT Pro B Type Natriuretic Pept 4135 pg/mL (0-450); Procalcitonin 0.14 ng/mL (0-0.5)
[2020-09-17 06:13] LABS: Alanine Aminotransferase 16 U/L (0-41); Albumin Level 2.8 g/dL (3.5-5.2); Alkaline Phosphatase 50 IU/L (40-130); Anion Gap 18.3 (5-19); Aspartate Amino Transferase 10 U/L (0-40); Blood Urea Nitrogen 30 mg/dL (8-23); Calcium 8.5 mg/dL (8.5-10.5); Carbon Dioxide 25 mmol/L (22-29); Chloride 101 mmol/L (98-107); Globulin 2.9 g/dL (1.3-4.6); Glucose 206 mg/dL (65-115); Osmolality Calculated 302 mOsm/kg (285-295); Potassium 4.3 mmol/L (3.5-5.1); Sodium 140 mmol/L (136-145); Total Bilirubin 0.4 mg/dL (0.15-1.2); Total Protein 5.7 g/dL (6.6-8.7)
[2020-09-17 06:23] LABS: Creatine Phosphokinase 31 U/L (39-308)
--- NOTE | 2020-09-17 07:00 | XR_ITS ---
WS: [id number] Exam: XR chest 1V portable [id number] Date/Time of Exam: 09/17/2020 7:25 AM Reason For Exam: sob Comparison 09/16/2020 Infiltrates in the lingula and left lower lobe show no change. Areas of plaque atelectasis in the mel ateral lower lobes. The lungs are hyperinflated. Advanced emphysematous changes noted. Cardiomediasti nal structures are unremarkable. XR/XR chest 1V portable [id number] IMPRESSION: 1. Infiltrates in the lingula and left lower lobe are unchanged. 2. Advanced emphysematous changes.
[2020-09-17 07:50] LABS: Glucose Point of Care 185 mg/dL (70-110)
[2020-09-17 08:06] LABS: Blood Gas Operator Identificat ED; Oxygen Device HHF
[2020-09-17] MEDS: pantoprazole DR 40 mg Tablet PO (08:25)
[2020-09-17] MEDS: potassium chloride ER 20 mEq Tablet PO ×2 (08:25→10:41)
[2020-09-17] MEDS: zinc gluconate 50 mg Tablet PO (08:25)
[2020-09-17] MEDS: cetirizine 10 mg Tablet PO (08:25)
[2020-09-17] MEDS: ascorbic acid 500 mg Tablet 1000 MG PO ×2 (08:25→17:31)
[2020-09-17] MEDS: cholecalciferol (vitamin D3) 1,000 unit Tablet 2000 UNIT PO (08:25)
[2020-09-17] MEDS: sertraline 50 mg Tablet 75 MG PO (08:26)
--- NOTE | 2020-09-17 09:57 | ECG_ITS ---
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 Measurements Intervals [place] Rate: 101 P: 85 DE: 138 QRS: 15 QRSD: 147 T: 73 QT: 381 QTc: 496 Interpretive Statements SINUS TACHYCARDIA INDETERMINATE AXIS RIGHT BUNDLE BRANCH BLOCK MODERATE T-WAVE ABNORMALITY, CONSIDER ANTEROLATERAL ISCHEMIA Compared to ECG 09/20/2015 11:58:23 Right bundle-branch block now present T-wave abnormality now present Possible ischemia now present Sinus rhythm no longer present Myocardial infarct finding no longer present Electronically Signed On 09-20-2020 22:16:33 REFRACTORY REPAIRER by Melvina Fuentes M.D. [id number]
[2020-09-17] MEDS: dexamethasone 4 mg/mL INJ 6 MG IVP (10:41)
[2020-09-17] MEDS: aspirin 81 mg EC Tablet PO (10:41)
[2020-09-17] MEDS: carvedilol 3.125 mg Tablet PO ×2 (10:45→17:31)
--- NOTE | 2020-09-17 11:24 | P.PN_ITS ---
Subjective Subjective: Interval history: Patient was examined this morning, tells me that he feels better, is refusing to take insulin, tells me that he uses cinnamon at home and usually that helps, no fevers, no chills, no nausea, no vomiting, no chest pain, no palpitations does feel short of breath if he gets out of bed Vitals/I&O/Wt Last Vital Signs Temp 97.9 F 09/17/20 08:00 Pulse 101 H 09/17/20 10:42 Resp 20 H 09/17/20 10:42 BP 122/76 09/17/20 08:00 Pulse Ox 91 09/17/20 10:42 09/16/20 09/17/20 09/17/20 22:59 06:59 14:59 Intake Total 550 / 750 208 / 958 270 / 270 Output Total 400 / 400 300 / 700 300 / 300 Balance 150 / 350 -92 / 258 -30 / -30 Weight last 48 hrs Weight 61.235 kg Physical Exam Const: COMMON NORMALS: no acute distress and patient oriented x3 HENMT: COMMON NORMALS: normocephalic HEAD & SCALP: normocephalic Neck/C-Spine: COMMON NORMALS: no JVD Resp: COMMON NORMALS: normal respiratory effort, No retractions and No use of accessory muscles AUSCULTATION: diminished lung sounds bilateral in the lower lung mcknight Cardio: COMMON NORMALS: no JVD, regular rate, regular rhythm, S1 normal heart sound present and S2 normal heart sound present RATE: regular rate RHYTHM: regular rhythm HEART SOUNDS: S1 normal heart sound present and S2 normal heart sound present GI: COMMON NORMALS: Normal to inspection, nondistended, normoactive bowel so unds present, Soft to palpation, non-tender, No hepatosplenomegaly present, no masses and no bruits PALPATION: Yes Soft to palpation and Yes No hepatosplenomegaly present Extremity: COMMON NORMALS: capillary refill normal, no clubbing, cyanosis or edema, no calf tenderness and no pedal edema Neuro: COMMON NORMALS: patient oriented x3 Psych: COMMON NORMALS: mental status grossly normal Data : 09/17/20 03:56 09/17/20 03:56 Micro: Microbiology 09/16/20 10:16 Blood Culture - Preliminary Blood NEGATIVE TO DATE 09/16/20 12:48 Bacterial Antigens - Final Urine,Clean Catch 09/16/20 12:12 Blood Culture - Preliminary Blood SPECIMEN COLLECTED A&P Assessment and plan (1) Acute respiratory failure with hypoxia: -Secondary to COPD, COVID-19 pneumonia, secondary bacterial pneumonia Plan: -Admit to viral ICU -Patient is DNR/DNI, confirmed with patient multiple times -Full dose Lovenox for hypercoagulability prophylaxis -Decadron -Insulin sliding scale, monitor blood sugars -Convalescent plasma -Remdesivir -Broad-spectrum antibiotic therapy vancomycin, Zosyn, azithromycin -Sputum cultures, blood cultures, urine bacterial antigens -Patient tested positive followed [place], will repeat rapid Covid, and Covid PCR -Monitor respiratory status closely -High flow during the day, BiPAP during the night, BiPAP as needed -Increase Lasix to 40 mg IV twice daily, daily I's and O's, fluid restrictions 1500 cc, disease, potassium replacement -Vitamin C, zinc -Advair, Spiriva, albuterol -Incentive spirometer use, Acapella -Encouraged to get up out of bed Status: Acute (2) Pneumonia due to COVID-19 virus: Status: Acute (3) Secondary bacterial pneumonia: Status: Acute (4) Systolic CHF: -Repeat echocardiogram shows: Left ventricle is mildly dilated. LV systolic function is moderate to severely reduced with EF of 30 to 35%. Above-mentioned regional wall motion abnormalities are seen. Mild to moderate aortic regurgitation is seen. Trace pulmonic regurgitation is seen. Compared to prior echocardiogram from 03/12/2020, LV function is reduced to 30 to 35% now. -Has no chest pain complaints, no palpitations complaints, has shortness of breath -Patient had a low probability obstructive CAD cardiac stress test in 2014 -Question is is it ischemic versus nonischemic, or related to acute respiratory failure and COVID-19 as above Plan: -Aspirin 81 mg -Atorvastatin 40 mg -Coreg 3.125 twice daily -Therapeutic Lovenox -Serial EKGs, serial troponins, telemetry monitoring -At some point he will require a coronary angiogram Status: Acute (5) Acute exacerbation of chronic obstructive pulmonary disease: Status: Acute (6) H/O asbestos exposure: Status: Acute (7) Diabetes 1.5, managed as type 2: Status: Acute Additional A&P Information TSH is low at 0.08, will get a free T3, free T4 Attestations Medical Necessity Statement*: She requires hospitalization for acute respiratory failure with hypoxia secondary to COVID-19, systolic CHF Coding Level of Care Code Acute Junior Qa Analyst for [facility] Diagnoses Acute respiratory failure with hypoxia J96.01 Pneumonia due to COVID-19 virus U07.1; J12.89 Secondary bacterial pneumonia J15.9 Systolic CHF I50.20 Acute exacerbation of chronic obstructive pulmonary disease J44.1 H/O asbestos exposure Z77.090 Diabetes 1.5, managed as type 2 E13.9
--- NOTE | 2020-09-17 11:57 | ECG_ITS ---
[facility] ED Test Date: 2020-09-17 Pat Name: David Snyder Department: Room: 212 Gender: Male Flight Communications Specialist: : 1945 Requested By: Danny Hansen Order Number: [id number] Christen MD: Melvina Fuentes M.D. Measurements Intervals [place] Rate: 96 P: 84 TN: 145 QRS: 47 QRSD: 146 T: 70 QT: 394 QTc: 500 Interpretive Statements SINUS RHYTHM INDETERMINATE AXIS RIGHT BUNDLE BRANCH BLOCK [120+ ms QRS DURATION, UPRIGHT V1, 40+ ms S IN I/aVL/V4/V5/V6] Compared to ECG 09/17/2020 10:17:17 Sinus tachycardia no longer present T-wave abnormality no longer present Possible ischemia no longer present Electronically Signed On 09-20-2020 22:28:19 FIELD AGRONOMIST by Melvina Fuentes M.D. [id number] f
[2020-09-17 11:59] LABS: Troponin(5th) Baseline 33 ng/L (0-15)
[2020-09-17 13:59] LABS: Troponin 5 2HR 34.48 ng/L (0-15); Troponin 5 2HR Delta 1.48 ABS# (0-10)
[2020-09-17 14:22] LABS: T3 Free 1.6 PG/ML (2.0-4.4)
[2020-09-17] MEDS: FUROsemide 10 mg/mL SDV 4mL 40 MG IVP (15:01)
[2020-09-17] MEDS: azithromycin 500 MG in sodium chloride 0.9% 250 ML 250 MG IV (15:07)
[2020-09-17] MEDS: vancomycin 1,000 MG in sodium chloride 0.9% 250 ML 250 MG IV (15:13)
--- NOTE | 2020-09-17 15:57 | ECG_ITS ---
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 Measurements Intervals [place] Rate: 110 P: 87 [place]: 141 QRS: -34 QRSD: 151 T: 72 QT: 389 QTc: 526 Interpretive Statements SINUS TACHYCARDIA WITH OCCASIONAL VENTRICULAR PREMATURE COMPLEXES INDETERMINATE AXIS RIGHT BUNDLE BRANCH BLOCK [120+ ms QRS DURATION, UPRIGHT V1, 40+ ms S IN I/aVL/V4/V5/V6] INTERPRETATION BASED ON A DEFAULT AGE OF 40 YEARS Compared to ECG 09/17/2020 13:46:12 Ventricular premature complex(es) now present Sinus rhythm no longer present Electronically Signed On 09-20-2020 22:28:03 ADMITTING OFFICE ESCORT by Melvina Fuentes M.D. [id number]
[2020-09-17] MEDS: LORazepam 0.5 mg Tablet 1 MG PO (16:35)
[2020-09-17 16:54] LABS: Glucose Point of Care 217 mg/dL (70-110)
[2020-09-17 16:59] LABS: Coronavirus Test Green County DETECTED
[2020-09-17 17:59] LABS: Glucose Point of Care 177 mg/dL (70-110)
[2020-09-17] MEDS: remdesivir 100 MG in sodium chloride 0.9% (100 ml) 100 ML IV (18:17)
[2020-09-17 18:53] LABS: Troponin 5 6HR 37.36 ng/L (0-15); Troponin 5 6HR Delta 4.36 ng/L (0-12)
[2020-09-17 20:08] LABS: Glucose Point of Care 189 mg/dL (70-110)
[2020-09-17] MEDS: LORazepam 1 mg Tablet PO (21:58)
[2020-09-17] MEDS: atorvastatin 40 mg Tablet PO (21:59)
[2020-09-18] VITALS (32 sets, daily range): BP systolic 87–137; BP diastolic 56–94; PULSE 93–116; RESP 18–32; TEMP 36.6; O2SAT 86–94
[2020-09-18] MEDS: ipratropium-albuterol 3 mL Neb INHALATION ×7 (00:02→23:24)
--- NOTE | 2020-09-18 01:54 | PC.NURSE ---
ASSUMING CARE Patient is resting in bed on HHFNC at 35 L and 50%. Patient is alert and oriented x 4 and denies any pain or needs at this time. Sita and deshawn running.
[2020-09-18] MEDS: piperacillin-tazobactam 3.375 GM in sodium chloride 0.9% (plus) 50 ML IV ×3 (03:33→19:48)
--- NOTE | 2020-09-18 03:45 | PC.NURSE ---
OXYGEN/BLADDER SCAN Patients monitor alarming at 81%. Patient in bed attempting to urinate but states that he could not. Bladder scan obtained and patient had >300 mL of urine in bladder. Dr. Hand notified and gave order for one time straight cath. When nurse went back in room to straight cath, patient had voided 50 mL in urinal, and when straight cathed patient had 310 mL. Patient instructed to let nurse know if his bladder started feeling full again and he could not urinate. Patient tolerated well. Once patient had calmed and nurse was emptying bladder, patient oxygen increased quickly. Patient states he was feeling anxious about not being able to urinate.
[2020-09-18 04:21] LABS: ABG PCO2 39.6 mmHg (35-45); ABG PH Result 7.47 (7.35-7.45); Arterial Blood Gas Hematocrit 43.7 % (42-52); Base Excess ABG 4.8 mmol/L (-2.0-2.0); Blood Gas Allen Test Pos; Blood Gas Sample Site Radial, right; Blood Gas Sample Type Arterial; HCO3 ABG 28.8 mmol/L (22-26); Oxygen Device NC; PO2 ABG 53.5 mmHg (80.0-100.0)
[2020-09-18 04:47] LABS: Basophils % 0.2 %; Hematocrit 42.1 % (42.0-52.0); Hemoglobin 13.7 g/dL (11.7-16.6); Lymphocytes # 0.2 10^3/uL (0.8-4.8); Lymphocytes % 3.2 %; Mean Corpuscular HGB Conc 32.5 g/dL (30.0-36.0); Mean Corpuscular Hemoglobin 29.4 pg (28.0-34.0); Mean Corpuscular Volume 90.3 fL (80-94); Mean Platelet Volume 10.7 fL (7.4-10.4); Monocytes # 0.5 10^3/uL (0.2-0.9); Monocytes % 8.3 %; Neutrophils # 5.34 10^3/uL (1.8-7.7); Neutrophils % 86.5 %; Nucleated Red Blood Cells % 0 %; Platelet Count 205 10^3/cmm (130-400); Red Blood Count 4.66 10^6/uL (4.1-5.3); Red Cell Distribution Width 12.7 % (12.1-15.1); White Blood Count 6.2 10^3/uL (4.0-10.0)
[2020-09-18 05:08] LABS: D Dimer 1.91 ug/mIFEU (0-0.59)
[2020-09-18 05:28] LABS: Alanine Aminotransferase 16 U/L (0-41); Albumin Level 2.9 g/dL (3.5-5.2); Alkaline Phosphatase 53 IU/L (40-130); Anion Gap 17.5 (5-19); Aspartate Amino Transferase 11 U/L (0-40); Blood Urea Nitrogen 38 mg/dL (8-23); Calcium 8.9 mg/dL (8.5-10.5); Carbon Dioxide 27 mmol/L (22-29); Chloride 103 mmol/L (98-107); Globulin 2.9 g/dL (1.3-4.6); Glucose 156 mg/dL (65-115); Osmolality Calculated 308 mOsm/kg (285-295); Potassium 4.5 mmol/L (3.5-5.1); Sodium 143 mmol/L (136-145); Total Bilirubin 0.6 mg/dL (0.15-1.2); Total Protein 5.8 g/dL (6.6-8.7)
[2020-09-18 05:29] LABS: C Reactive Protein 52.4 mg/L (0.0-4.9); Magnesium 2.2 mg/dL (1.7-2.3); Phosphorus 3.7 mg/dL (2.5-4.5)
[2020-09-18 05:31] LABS: NT Pro B Type Natriuretic Pept 5301 pg/mL (0-450); Procalcitonin 0.18 ng/mL (0-0.5)
[2020-09-18 05:44] LABS: Creatine Phosphokinase 51 U/L (39-308)
[2020-09-18] MEDS: LORazepam 1 mg Tablet PO ×2 (05:45→23:50)
[2020-09-18] MEDS: enoxaparin 60 mg/0.6 mL Syringe SUBCUT ×2 (05:45→17:42)
[2020-09-18 06:24] LABS: Glucose Point of Care 155 mg/dL (70-110)
--- NOTE | 2020-09-18 07:00 | XR_ITS ---
WS: [id number] Exam: XR chest 1V portable [id number] Date/Time of Exam: 09/18/2020 7:00 AM Reason For Exam: sob Comparison 09/17/2020. Infiltrates in the lingula and left lower lobe show no change. Chronic plaque atelectasis in the righ t base. The lungs are hyperinflated with emphysematous changes noted. Cardiomediastinal structures ar e unremarkable for technique. Bony structures are intact. XR/XR chest 1V portable [id number] IMPRESSION: 1. Infiltrates in the left lower lung zone unchanged. 2. Pulmonary hyperinflation and advanced emphysematous change.
[2020-09-18] MEDS: aspirin 81 mg EC Tablet PO (09:10)
[2020-09-18] MEDS: zinc gluconate 50 mg Tablet PO (09:10)
[2020-09-18] MEDS: pantoprazole DR 40 mg Tablet PO (09:10)
[2020-09-18] MEDS: sertraline 50 mg Tablet 75 MG PO (09:10)
[2020-09-18] MEDS: carvedilol 3.125 mg Tablet PO ×2 (09:10→17:42)
[2020-09-18] MEDS: ascorbic acid 500 mg Tablet 1000 MG PO ×2 (09:10→17:42)
[2020-09-18] MEDS: cetirizine 10 mg Tablet PO (09:10)
[2020-09-18] MEDS: cholecalciferol (vitamin D3) 1,000 unit Tablet 2000 UNIT PO (09:11)
[2020-09-18] MEDS: potassium chloride ER 20 mEq Tablet 40 MEQ PO (09:11)
[2020-09-18 10:24] LABS: T4 Total 7.8 mcg/dL (4.9-10.5)
[2020-09-18 10:35] LABS: Glucose Point of Care 230 mg/dL (70-110)
[2020-09-18] MEDS: FUROsemide 10 mg/mL SDV 4mL 40 MG IVP (10:48)
[2020-09-18] MEDS: dexamethasone 4 mg/mL INJ 6 MG IVP (10:48)
--- NOTE | 2020-09-18 11:17 | PM.PN ---
Subjective Subjective: Interval history: Patient was examined this morning, he is laying in bed, tells me that he is feeling better, still on high flow, no chest pain, no palpitations, no lightheaded, no nausea, no vomiting Vitals/I&O/Wt Last Vital Signs Temp 98 F 09/18/20 04:00 Pulse 111 H 09/18/20 09:00 Resp 24 H 09/18/20 09:00 BP 107/72 09/18/20 09:00 Pulse Ox 93 09/18/20 09:00 09/17/20 09/18/20 09/18/20 22:59 06:59 14:59 Intake Total 650 / 1090 50 / 50 Output Total 325 / 625 360 / 985 Balance 325 / 465 -360 / 105 50 / 50 Physical Exam Const: COMMON NORMALS: no acute distress and patient oriented x3 HENMT: COMMON NORMALS: normocephalic HEAD & SCALP: normocephalic Neck/C-Spine: COMMON NORMALS: no JVD Resp: COMMON NORMALS: normal respiratory effort, No retractions and No use of accessory muscles AUSCULTATION: diminished lung sounds diffuse Cardio: COMMON NORMALS: no JVD, regular rate, regular rhythm, S1 normal heart sound present and S2 normal heart sound present RATE: regular rate RHYTHM: regular rhythm HEART SOUNDS: S1 normal heart sound present and S2 normal heart sound present GI: COMMON NORMALS: Normal to inspection, nondistended, normoactive bowel sounds present, Soft to palpation, non-tender, No hepatosplenomegaly present, no masses and no bruits PALPATION: Yes Soft to palpation and Yes No hepatosplenomegaly present Extremity: COMMON NORMALS: capillary refill normal, no clubbing, cyanosis or edema, no calf tenderness and no pedal edema Neuro: COMMON NORMALS: patient oriented x3 Psych: COMMON NORMALS: mental status grossly normal Data : 09/18/20 03:39 09/18/20 03:39 Micro: Microbiology 09/16/20 12:12 Blood Culture - Preliminary Blood NEGATIVE TO DATE 09/16/20 10:16 Blood Culture - Preliminary Blood NEGATIVE TO DATE A&P Assessment and plan (1) Acute respiratory failure with hypoxia: -Secondary to COPD, COVID-19 pneumonia, secondary bacterial pneumonia, pulmonary edema secondary to systolic CHF Plan: -Admit to viral ICU -Patient is DNR/DNI, confirmed with patient multiple times -Full dose Lovenox for hypercoagulability prophylaxis -Decadron -Insulin sliding scale, monitor blood sugars -Convalescent plasma -Remdesivir -Broad-spectrum antibiotic therapy vancomycin, Zosyn, azithromycin -Lasix 40 mg IV twice daily, with potassium replacement, monitor creatinine is 1.3, monitor urine output -Sputum cultures, blood cultures, urine bacterial antigens -Patient tested positive followed [place], will repeat rapid Covid, and Covid PCR -Monitor respiratory status closely -High flow during the day, BiPAP during the night, BiPAP as needed -Increase Lasix to 40 mg IV twice daily, daily I's and O's, fluid restrictions 1500 cc, disease, potassium replacement -Vitamin C, zinc -Advair, Spiriva, albuterol -Incentive spirometer use, Acapella -Encouraged to get up out of bed Status: Acute (2) Pneumonia due to COVID-19 virus: Status: Acute (3) Secondary bacterial pneumonia: Status: Acute (4) Systolic CHF: -Repeat echocardiogram shows: Left ventricle is mildly dilated. LV systolic function is moderate to severely reduced with EF of 30 to 35%. Above-mentioned regional wall motion abnormalities are seen. Mild to moderate aortic regurgitation is seen. Trace pulmonic regurgitation is seen. Compared to prior echocardiogram from 03/12/2020, LV function is reduced to 30 to 35% now. -Has no chest pain complaints, no palpitations complaints, has shortness of breath -Patient had a low probability obstructive CAD cardiac stress test in 2015 -Question is is it ischemic versus nonischemic, or related to acute respiratory failure and COVID-19 as above Plan: -Aspirin 81 mg -Atorvastatin 40 mg -Coreg 3.125 twice daily -Therapeutic Lovenox -Serial EKGs, serial troponins, telemetry monitoring -At some point he will require a coronary angiogram Status: Acute (5) Acute exacerbation of chronic obstructive pulmonary disease: Status: Acute (6) H/O asbestos exposure: Status: Acute (7) Diabetes 1.5, managed as type 2: Status: Acute Additional A&P Information TSH is low at 0.08, free T3, T4 within normal limits, likely subclinical hyperthyroidism, will repeat TSH in 6 weeks Attestations Medical Necessity Statement*: Patient requires hospitalization with acute respiratory failure with hypoxia secondary COVID-19, secondary bacterial pneumonia, pulmonary edema Coding Level of Care Code Acute 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
--- NOTE | 2020-09-18 15:49 | PC.RESP ---
Pulmonary Rehab information sent to patient.
[2020-09-18] MEDS: azithromycin 500 MG in sodium chloride 0.9% 250 ML 250 MG IV (16:01)
[2020-09-18 17:08] LABS: Glucose Point of Care 235 mg/dL (70-110)
[2020-09-18] MEDS: remdesivir 100 MG in sodium chloride 0.9% (100 ml) 100 ML IV (17:43)
[2020-09-18 18:14] LABS: Vancomycin Trough 8.4 ug/mL (10-15)
[2020-09-18] MEDS: vancomycin 1,000 MG in sodium chloride 0.9% 250 ML 250 MG IV (18:38)
[2020-09-18] MEDS: atorvastatin 40 mg Tablet PO (19:57)
[2020-09-18 21:42] LABS: Glucose Point of Care 227 mg/dL (70-110)
[2020-09-19] VITALS (43 sets, daily range): BP systolic 87–134; BP diastolic 53–82; PULSE 85–110; RESP 16–31; TEMP 35.6–37.1; O2SAT 88–97
[2020-09-19] MEDS: ipratropium-albuterol 3 mL Neb INHALATION ×6 (03:42→23:38)
[2020-09-19] MEDS: piperacillin-tazobactam 3.375 GM in sodium chloride 0.9% (plus) 50 ML IV ×3 (03:49→20:30)
[2020-09-19 04:23] LABS: Basophils % 0.2 %; Eosinophils % 0.2 %; Hematocrit 40.8 % (42.0-52.0); Hemoglobin 13.5 g/dL (11.7-16.6); Lymphocytes # 0.2 10^3/uL (0.8-4.8); Lymphocytes % 4.3 %; Mean Corpuscular HGB Conc 33.1 g/dL (30.0-36.0); Mean Corpuscular Hemoglobin 30.1 pg (28.0-34.0); Mean Corpuscular Volume 91.1 fL (80-94); Mean Platelet Volume 10.4 fL (7.4-10.4); Monocytes # 0.4 10^3/uL (0.2-0.9); Monocytes % 8.2 %; Neutrophils # 4.57 10^3/uL (1.8-7.7); Neutrophils % 85.6 %; Nucleated Red Blood Cells % 0 %; Platelet Count 193 10^3/cmm (130-400); Red Blood Count 4.48 10^6/uL (4.1-5.3); Red Cell Distribution Width 12.6 % (12.1-15.1); White Blood Count 5.3 10^3/uL (4.0-10.0)
[2020-09-19 04:43] LABS: D Dimer 1.68 ug/mIFEU (0-0.59)
[2020-09-19 05:03] LABS: Magnesium 2.4 mg/dL (1.7-2.3); Phosphorus 3.4 mg/dL (2.5-4.5)
[2020-09-19 05:10] LABS: NT Pro B Type Natriuretic Pept 2670 pg/mL (0-450); Procalcitonin 0.17 ng/mL (0-0.5)
[2020-09-19 05:11] LABS: Alanine Aminotransferase 14 U/L (0-41); Albumin Level 2.8 g/dL (3.5-5.2); Alkaline Phosphatase 51 IU/L (40-130); Anion Gap 11.3 (5-19); Aspartate Amino Transferase 9 U/L (0-40); Blood Urea Nitrogen 42 mg/dL (8-23); Calcium 8.4 mg/dL (8.5-10.5); Carbon Dioxide 29 mmol/L (22-29); Chloride 107 mmol/L (98-107); Globulin 2.5 g/dL (1.3-4.6); Glucose 162 mg/dL (65-115); Osmolality Calculated 310 mOsm/kg (285-295); Potassium 4.3 mmol/L (3.5-5.1); Sodium 143 mmol/L (136-145); Total Bilirubin 0.5 mg/dL (0.15-1.2); Total Protein 5.3 g/dL (6.6-8.7)
[2020-09-19 05:23] LABS: Creatine Phosphokinase 23 U/L (39-308)
[2020-09-19 05:38] LABS: ABG PCO2 41.4 mmHg (35-45); ABG PH Result 7.46 (7.35-7.45); Arterial Blood Gas Hematocrit 46.4 % (42-52); Base Excess ABG 5.3 mmol/L (-2.0-2.0); Blood Gas Allen Test Pos; Blood Gas Sample Site Radial, right; Blood Gas Sample Type Arterial; HCO3 ABG 29.6 mmol/L (22-26); Oxygen Device NC; PO2 ABG 61.4 mmHg (80.0-100.0)
[2020-09-19] MEDS: enoxaparin 60 mg/0.6 mL Syringe SUBCUT ×2 (05:47→16:36)
[2020-09-19 06:26] LABS: C Reactive Protein 32.6 mg/L (0.0-4.9)
--- NOTE | 2020-09-19 07:00 | XR_ITS ---
WS: [id number] Exam: XR chest 1V portable [id number] Date/Time of Exam: 09/19/2020 7:02 AM Reason For Exam: sob Comparison 09/18/2020. Infiltrates in the left lower lung zones show no significant change. The lungs are hyperinflated. Emp hysematous changes noted. Cardiomediastinal structures are unremarkable. Monitoring leads superimpose the chest. XR/XR chest 1V portable [id number] IMPRESSION: 1. Left pulmonary infiltrates and advanced emphysematous changes. No change.
--- NOTE | 2020-09-19 07:58 | PC.NURSE ---
ASSUMING CARE Patient resting in bed asleep. HHFNC at 35L and 55%. No IV medications running.
--- NOTE | 2020-09-19 08:01 | PC.NURSE ---
SHIFT SUMMARY Patients HHFNC settings stayed the same throughout the shift. 500 mL urine output. Alert and oriented x 4. Patient rested well this shift.
--- NOTE | 2020-09-19 08:29 | PC.SOCIAL ---
IM discussed with nurse by phone at bedside. She will update patient of his right to appeal once dc order placed. Will place copy in chart and provide one to patient. Nurse agrees to hand patient copy.
[2020-09-19] MEDS: ascorbic acid 500 mg Tablet 1000 MG PO (09:46)
[2020-09-19] MEDS: carvedilol 3.125 mg Tablet PO (09:47)
[2020-09-19] MEDS: aspirin 81 mg EC Tablet PO (09:47)
[2020-09-19] MEDS: cetirizine 10 mg Tablet PO (09:48)
[2020-09-19] MEDS: cholecalciferol (vitamin D3) 1,000 unit Tablet 2000 UNIT PO (09:48)
[2020-09-19] MEDS: pantoprazole DR 40 mg Tablet PO (09:49)
[2020-09-19] MEDS: potassium chloride ER 20 mEq Tablet 40 MEQ PO (09:49)
[2020-09-19] MEDS: sertraline 50 mg Tablet 75 MG PO (09:50)
[2020-09-19] MEDS: metOLazone 5 MG Tablet 10 MG PO (09:51)
[2020-09-19] MEDS: zinc gluconate 50 mg Tablet PO (09:51)
[2020-09-19] MEDS: LORazepam 1 mg Tablet PO ×2 (10:00→20:30)
[2020-09-19] MEDS: FUROsemide 10 mg/mL SDV 4mL 40 MG IVP (10:24)
[2020-09-19 10:57] LABS: Glucose Point of Care 176 mg/dL (70-110)
--- NOTE | 2020-09-19 11:12 | PC.NURSE ---
Initially patient was hesitant to take morning medications as he wants to take as few medications as possible. Patient agreed to morning medications after nurse explained why he was receiving them and potential risks of not taking them.
[2020-09-19] MEDS: vancomycin 1,000 MG in sodium chloride 0.9% 250 ML 250 MG IV (11:59)
[2020-09-19] MEDS: dexamethasone 4 mg/mL INJ 6 MG IVP (12:00)
--- NOTE | 2020-09-19 12:29 | PM.PN ---
Subjective Subjective: Interval history: This morning patient was examined, he is laying in bed, taking his morning medications, is a bit irritated about being here in the hospital, denies shortness of breath, denies lightheadedness, denies dizziness, denies chest pain Vitals/I&O/Wt Last Vital Signs Temp 97.8 F 09/19/20 08:00 Pulse 88 09/19/20 11:31 Resp 17 09/19/20 11:31 BP 109/68 09/19/20 10:00 Pulse Ox 92 09/19/20 11:31 09/18/20 09/19/20 09/19/20 22:59 06:59 14:59 Intake Total 900 / 1250 50 / 1300 290 / 290 Output Total 400 / 725 500 / 1225 450 / 450 Balance 500 / 525 -450 / 75 -160 / -160 Physical Exam Const: COMMON NORMALS: no acute distress and patient oriented x3 HENMT: COMMON NORMALS: normocephalic HEAD & SCALP: normocephalic Neck/C-Spine: COMMON NORMALS: no JVD Resp: COMMON NORMALS: normal respiratory effort, No retractions and No use of accessory muscles AUSCULTATION: diminished lung sounds diffuse Cardio: COMMON NORMALS: no JVD, regular rate, regular rhythm, S1 normal heart sound present and S2 normal heart sound present RATE: regular rate RHYTHM: regular rhythm HEART SOUNDS: S1 normal heart sound present and S2 normal heart sound present GI: COMMON NORMALS: Normal to inspection, nondistended, normoactive bowel sounds present, Soft to palpation, non-tender, No hepatosplenomegaly present, no masses and no bruits PALPATION: Yes Soft to palpation and Yes No hepatosplenomegaly present Extremity: COMMON NORMALS: capillary refill normal, no clubbing, cyanosis or edema, no calf tenderness and no pedal edema Neuro: COMMON NORMALS: patient oriented x3 Psych: COMMON NORMALS: mental status grossly normal Data : 09/19/20 03:13 09/19/20 03:13 A&P Assessment and plan (1) Acute respiratory failure with hypoxia: -Secondary to COPD, COVID-19 pneumonia, secondary bacterial pneumonia, pulmonary edema secondary to systolic CHF Plan: -Admit to viral ICU -Patient is DNR/DNI, confirmed with patient multiple times -Full dose Lovenox for hypercoagulability prophylaxis -Decadron -Insulin sliding scale, monitor blood sugars -Convalescent plasma -Remdesivir -Broad-spectrum antibiotic therapy vancomycin, Zosyn, azithromycin -Lasix 40 mg IV twice daily, with potassium replacement, monitor creatinine is 1.1, monitor urine output, fluid restrictions 1500 cc, potassium replacement -Sputum cultures, blood cultures, urine bacterial antigens -Covid PCR positive -Monitor respiratory status closely -High flow during the day, BiPAP during the night, BiPAP as needed -Vitamin C, zinc -Advair, Spiriva, albuterol -Incentive spirometer use, Acapella -Encouraged to get up out of bed Plan for today continue diuresis continue antibiotics, remdesivir, convalescent plasma, high flow, try to wean oxygen, physical therapy Status: Acute (2) Pneumonia due to COVID-19 virus: Status: Acute (3) Secondary bacterial pneumonia: Status: Acute (4) Systolic CHF: -Repeat echocardiogram shows: Left ventricle is mildly dilated. LV systolic function is moderate to severely reduced with EF of 30 to 35%. Above-mentioned regional wall motion abnormalities are seen. Mild to moderate aortic regurgitation is seen. Trace pulmonic regurgitation is seen. Compared to prior echocardiogram from 03/12/2020, LV function is reduced to 30 to 35% now. -Has no chest pain complaints, no palpitations complaints, has shortness of breath -Patient had a low probability obstructive CAD cardiac stress test in 2015 -Question is is it ischemic versus nonischemic, or related to acute respiratory failure and COVID-19 as above Plan: -Aspirin 81 mg -Atorvastatin 40 mg -Coreg 3.125 twice daily -Therapeutic Lovenox -Serial EKGs, serial troponins, telemetry monitoring -At some point he will require a coronary angiogram Status: Acute (5) Acute exacerbation of chronic obstructive pulmonary disease: Status: Acute (6) H/O asbestos exposure: Status: Acute (7) Diabetes 1.5, managed as type 2: Status: Acute Additional A&P Information TSH is low at 0.08, free T3, T4 within normal limits, likely subclinical hyperthyroidism, will repeat TSH in 6 weeks Attestations Medical Necessity Statement*: Patient requires hospitalization for acute respiratory failure hypoxia secondary to COVID-19, secondary bacterial pneumonia, pulmonary edema Coding Level of Care Code Acute Radiologic Technology Program Director for [facility] Diagnoses Acute respiratory failure with hypoxia J96.01 Pneumonia due to COVID-19 virus U07.1; J12.89 Secondary bacterial pneumonia J15.9 Systolic CHF I50.20 Acute exacerbation of chronic obstructive pulmonary disease J44.1 H/O asbestos exposure Z77.090 Diabetes 1.5, managed as type 2 E13.9
[2020-09-19 12:39] LABS: Glucose Point of Care 188 mg/dL (70-110)
--- NOTE | 2020-09-19 14:34 | PC.NURSE ---
Nurse Spoke to patient about the importance of ambulation and getting up to a chair. Patient is resistant to getting up and is only agreeable to sitting up on the edge of the bed. Nurse will attempt to get patient to ambulate and up to a chair again for dinner.
[2020-09-19] MEDS: azithromycin 500 MG in sodium chloride 0.9% 250 ML 250 MG IV (16:34)
[2020-09-19 16:59] LABS: Glucose Point of Care 183 mg/dL (70-110)
--- NOTE | 2020-09-19 17:08 | PC.NURSE ---
Patient refused 1800 meds (coreg, ascorbic acid) unless he had his dinner first, when dinner trays arrived pt did not want to eat or take medication due to nausea. Nurse offered nausea medication, but the patient refused.
[2020-09-19] MEDS: remdesivir 100 MG in sodium chloride 0.9% (100 ml) 100 ML IV (18:08)
--- NOTE | 2020-09-19 19:00 | PC.NURSE ---
Report received, care assumed. Monitor alarms, plan of care et previous orders reviewed. Please see physical assessment et vital sign flow sheet for details.
[2020-09-19] MEDS: atorvastatin 40 mg Tablet PO (20:30)
[2020-09-19 22:00] LABS: Glucose Point of Care 248 mg/dL (70-110)
--- NOTE | 2020-09-19 22:44 | PC.NURSE ---
Education: Patient refused 2215 lasix dose because he didn't want to be up all night peeing. RN re-educated patient on what the lasix does et reason for medication being ordered for him et his condition. Patient still refused lasix dose post education.
[2020-09-20] VITALS (33 sets, daily range): BP systolic 90–137; BP diastolic 60–98; PULSE 90–121; RESP 16–33; TEMP 36.6–37.7; O2SAT 89–96
[2020-09-20] MEDS: piperacillin-tazobactam 3.375 GM in sodium chloride 0.9% (plus) 50 ML IV ×3 (03:34→18:42)
[2020-09-20] MEDS: ipratropium-albuterol 3 mL Neb INHALATION ×6 (03:51→23:56)
[2020-09-20 04:02] LABS: ABG PCO2 44.8 mmHg (35-45); ABG PH Result 7.46 (7.35-7.45); Base Excess ABG 6.6 mmol/L (-2.0-2.0); Blood Gas Allen Test Pos; Blood Gas Sample Site Brachial, right; Blood Gas Sample Type Arterial; HCO3 ABG 31.6 mmol/L (22-26); PO2 ABG 64.3 mmHg (80.0-100.0)
[2020-09-20] MEDS: enoxaparin 60 mg/0.6 mL Syringe SUBCUT ×2 (04:11→17:41)
[2020-09-20 05:23] LABS: Basophils % 0.1 %; Eosinophils % 0.1 %; Hematocrit 43.9 % (42.0-52.0); Hemoglobin 14.1 g/dL (11.7-16.6); Lymphocytes # 0.2 10^3/uL (0.8-4.8); Lymphocytes % 2.8 %; Mean Corpuscular HGB Conc 32.1 g/dL (30.0-36.0); Mean Corpuscular Hemoglobin 29.4 pg (28.0-34.0); Mean Corpuscular Volume 91.5 fL (80-94); Mean Platelet Volume 10.6 fL (7.4-10.4); Monocytes # 0.6 10^3/uL (0.2-0.9); Monocytes % 7.3 %; Neutrophils # 7.52 10^3/uL (1.8-7.7); Neutrophils % 88.8 %; Nucleated Red Blood Cells % 0 %; Platelet Count 216 10^3/cmm (130-400); Red Cell Distribution Width 12.6 % (12.1-15.1); White Blood Count 8.5 10^3/uL (4.0-10.0)
[2020-09-20 05:40] LABS: Lactate (Lactic Acid level) 1.4 mmol/L (0.5-2.2)
[2020-09-20 05:48] LABS: Alanine Aminotransferase 20 U/L (0-41); Albumin Level 3.2 g/dL (3.5-5.2); Alkaline Phosphatase 61 IU/L (40-130); Aspartate Amino Transferase 13 U/L (0-40); Blood Urea Nitrogen 45 mg/dL (8-23); Calcium 8.5 mg/dL (8.5-10.5); Carbon Dioxide 30 mmol/L (22-29); Chloride 106 mmol/L (98-107); Globulin 2.9 g/dL (1.3-4.6); Glucose 152 mg/dL (65-115); Magnesium 2.2 mg/dL (1.7-2.3); Osmolality Calculated 317 mOsm/kg (285-295); Phosphorus 3.9 mg/dL (2.5-4.5); Sodium 146 mmol/L (136-145); Total Bilirubin 0.6 mg/dL (0.15-1.2); Total Protein 6.1 g/dL (6.6-8.7)
[2020-09-20 05:53] LABS: Anion Gap 14.4 (5-19); NT Pro B Type Natriuretic Pept 2418 pg/mL (0-450); Potassium 4.4 mmol/L (3.5-5.1); Procalcitonin 0.14 ng/mL (0-0.5)
[2020-09-20] MEDS: vancomycin 1,000 MG in sodium chloride 0.9% 250 ML 250 MG IV (06:26)
[2020-09-20] MEDS: LORazepam 1 mg Tablet PO (06:44)
--- NOTE | 2020-09-20 07:00 | XR_ITS ---
WS: [id number] Exam: XR chest 1V portable [id number] Date/Time of Exam: 09/20/2020 7:00 AM Reason For Exam: sob Comparison 09/19/2020. Infiltrates in the left lower lung zones slightly more dense on today's study. Remaining lung mcknight are clear. Advanced emphysematous changes in the upper lung zones. Cardiomediastinal structures are u nremarkable. No pneumothorax. XR/XR chest 1V portable [id number] IMPRESSION: 1. Infiltrates in the left base slightly more dense than noted on the previous exam. No other significant change.
[2020-09-20 08:03] LABS: Glucose Point of Care 188 mg/dL (70-110)
[2020-09-20] MEDS: carvedilol 3.125 mg Tablet PO ×2 (08:18→17:40)
[2020-09-20] MEDS: aspirin 81 mg EC Tablet PO (08:18)
[2020-09-20] MEDS: ascorbic acid 500 mg Tablet 1000 MG PO ×2 (08:18→17:40)
[2020-09-20] MEDS: metOLazone 5 MG Tablet 10 MG PO (08:19)
[2020-09-20] MEDS: sertraline 50 mg Tablet 75 MG PO (08:19)
[2020-09-20] MEDS: cetirizine 10 mg Tablet PO (08:19)
[2020-09-20] MEDS: pantoprazole DR 40 mg Tablet PO (08:19)
[2020-09-20] MEDS: potassium chloride ER 20 mEq Tablet 40 MEQ PO (08:19)
[2020-09-20] MEDS: cholecalciferol (vitamin D3) 1,000 unit Tablet 2000 UNIT PO (08:19)
[2020-09-20] MEDS: zinc gluconate 50 mg Tablet PO (08:20)
[2020-09-20] MEDS: FUROsemide 10 mg/mL SDV 4mL 40 MG IVP ×2 (10:16→21:38)
[2020-09-20] MEDS: dexamethasone 4 mg/mL INJ 6 MG IVP (10:16)
[2020-09-20 12:27] LABS: Glucose Point of Care 126 mg/dL (70-110)
--- NOTE | 2020-09-20 12:36 | PM.PN ---
Subjective Subjective: Interval history: Patient was examined this morning, he tells me he is feeling better, is still on high flow, no nausea, no vomiting, no chest pain, did sit in a chair yesterday Vitals/I&O/Wt Last Vital Signs Temp 97.9 F 09/20/20 07:00 Pulse 112 H 09/20/20 11:38 Resp 22 H 09/20/20 11:38 BP 130/78 09/20/20 09:00 Pulse Ox 92 09/20/20 11:38 09/19/20 09/20/20 09/20/20 22:59 06:59 14:59 Intake Total 1080 / 1620 50 / 1670 600 / 600 Output Total 850 / 1950 350 / 2300 200 / 200 Balance 230 / -330 -300 / -630 400 / 400 Physical Exam Const: COMMON NORMALS: no acute distress and patient oriented x3 HENMT: COMMON NORMALS: normocephalic HEAD & SCALP: normocephalic Neck/C-Spine: COMMON NORMALS: no JVD Resp: COMMON NORMALS: normal respiratory effort, No retractions and No use of accessory muscles AUSCULTATION: diminished lung sounds bilateral Cardio: COMMON NORMALS: no JVD, regular rate, regular rhythm, S1 normal heart sound present and S2 normal heart sound present RATE: regular rate RHYTHM: regular rhythm HEART SOUNDS: S1 normal heart sound present and S2 normal heart sound present GI: COMMON NORMALS: Normal to inspection, nondistended, normoactive bowel sounds present, Soft to palpation, non-tender, No hepatosplenomegaly present, no masses and no bruits PALPATION: Yes Soft to palpation and Yes No hepatosplenomegaly present Extremity: COMMON NORMALS: capillary refill normal, no clubbing, cyanosis or edema, no calf tenderness and no pedal edema Neuro: COMMON NORMALS: patient oriented x3 Psych: COMMON NORMALS: mental status grossly normal Data : 09/20/20 04:50 09/20/20 04:50 A&P Assessment and plan (1) Acute respiratory failure with hypoxia: -Secondary to COPD, COVID-19 pneumonia, secondary bacterial pneumonia, pulmonary edema secondary to systolic CHF Plan: -Admit to viral ICU -Patient is DNR/DNI, confirmed with patient multiple times -Full dose Lovenox for hypercoagulability prophylaxis -Decadron -Insulin sliding scale, monitor blood sugars -Convalescent plasma, finished -Remdesivir -De-escalate to Zosyn and azithromycin -Lasix 40 mg IV twice daily, with potassium replacement, monitor creatinine is 1.1, monitor urine output, fluid restrictions 1500 cc, potassium replacement -Sputum cultures, blood cultures, urine bacterial antigens -Covid PCR positive -Monitor respiratory status closely -High flow during the day, BiPAP during the night, BiPAP as needed -Vitamin C, zinc -Advair, Spiriva, albuterol -Incentive spirometer use, Acapella -Encouraged to get up out of bed Plan for today continue diuresis continue antibiotics, remdesivir,high flow, try to wean oxygen, physical therapy Status: Acute (2) Pneumonia due to COVID-19 virus: Status: Acute (3) Secondary bacterial pneumonia: Status: Acute (4) Systolic CHF: -Repeat echocardiogram shows: Left ventricle is mildly dilated. LV systolic function is moderate to severely reduced with EF of 30 to 35%. Above-mentioned regional wall motion abnormalities are seen. Mild to moderate aortic regurgitation is seen. Trace pulmonic regurgitation is seen. Compared to prior echocardiogram from 03/12/2020, LV function is reduced to 30 to 35% now. -Has no chest pain complaints, no palpitations complaints, has shortness of breath -Patient had a low probability obstructive CAD cardiac stress test in 2014 -Question is is it ischemic versus nonischemic, or related to acute respiratory failure and COVID-19 as above Plan: -Aspirin 81 mg -Atorvastatin 40 mg -Coreg 3.125 twice daily -Therapeutic Lovenox -Serial EKGs, serial troponins, telemetry monitoring -At some point he will require a coronary angiogram Status: Acute (5) Acute exacerbation of chronic obstructive pulmonary disease: Status: Acute (6) H/O asbestos exposure: Status: Acute (7) Diabetes 1.5, managed as type 2: Status: Acute Additional A&P Information TSH is low at 0.08, free T3, T4 within normal limits, likely subclinical hyperthyroidism, will repeat TSH in 6 weeks Attestations Medical Necessity Statement*: Patient requires hospitalization for acute respiratory failure with hypoxia secondary COVID-19, secondary bacterial infection Coding Level of Care Code Acute Special Service Representative for [facility] Diagnoses Acute respiratory failure with hypoxia J96.01 Pneumonia due to COVID-19 virus U07.1; J12.89 Secondary bacterial pneumonia J15.9 Systolic CHF I50.20 Acute exacerbation of chronic obstructive pulmonary disease J44.1 H/O asbestos exposure Z77.090 Diabetes 1.5, managed as type 2 E13.9
--- NOTE | 2020-09-20 12:56 | PC.OT ---
Held per nursing due to breathing concerns.
[2020-09-20] MEDS: azithromycin 500 MG in sodium chloride 0.9% 250 ML 250 MG IV (14:20)
[2020-09-20 17:34] LABS: Glucose Point of Care 214 mg/dL (70-110)
[2020-09-20] MEDS: remdesivir 100 MG in sodium chloride 0.9% (100 ml) 100 ML IV (17:41)
--- NOTE | 2020-09-20 18:23 | PC.NURSE ---
[address] Hansen. Discussed plan of care. Orders for IS and up to chair. 1045 Helped patient to chair. Patient became short of breath and wheezy, O2 sats dropped to 88% and heart rate increased to 120 bpm. Patient was trying to empty his bladder but was unable to. Patient states he can not stay in the chair at this time. Helped patient back to bed. [id number] Reported patient's activity intolerance and urinary retention to Dr. Hansen. Orders for Estrada.
[2020-09-20 20:03] LABS: Glucose Point of Care 181 mg/dL (70-110)
[2020-09-20] MEDS: atorvastatin 40 mg Tablet PO (21:37)
[2020-09-21] VITALS (37 sets, daily range): BP systolic 90–127; BP diastolic 62–86; PULSE 89–120; RESP 19–29; TEMP 36.4–36.6; O2SAT 86–98
[2020-09-21] MEDS: ipratropium-albuterol 3 mL Neb INHALATION ×6 (03:17→23:47)
[2020-09-21] MEDS: piperacillin-tazobactam 3.375 GM in sodium chloride 0.9% (plus) 50 ML IV ×2 (03:46→11:35)
[2020-09-21] MEDS: enoxaparin 60 mg/0.6 mL Syringe SUBCUT ×2 (04:32→16:31)
[2020-09-21] MEDS: LORazepam 1 mg Tablet PO ×2 (04:34→21:16)
[2020-09-21 05:03] LABS: Basophils % 0.2 %; Hematocrit 47.9 % (42.0-52.0); Hemoglobin 15.6 g/dL (11.7-16.6); Lymphocytes # 0.3 10^3/uL (0.8-4.8); Lymphocytes % 2.1 %; Mean Corpuscular HGB Conc 32.6 g/dL (30.0-36.0); Mean Corpuscular Hemoglobin 29.2 pg (28.0-34.0); Mean Corpuscular Volume 89.7 fL (80-94); Mean Platelet Volume 11.1 fL (7.4-10.4); Monocytes # 0.9 10^3/uL (0.2-0.9); Monocytes % 5.7 %; Neutrophils # 14.91 10^3/uL (1.8-7.7); Nucleated Red Blood Cells % 0 %; Platelet Count 262 10^3/cmm (130-400); Red Blood Count 5.34 10^6/uL (4.1-5.3); Red Cell Distribution Width 12.5 % (12.1-15.1); White Blood Count 16.4 10^3/uL (4.0-10.0)
[2020-09-21 05:07] LABS: ABG PCO2 40.1 mmHg (35-45); ABG PH Result 7.47 (7.35-7.45); Arterial Blood Gas Hematocrit 50.8 % (42-52); Base Excess ABG 5.2 mmol/L (-2.0-2.0); Blood Gas Allen Test Pos; Blood Gas Sample Type Arterial; HCO3 ABG 29.3 mmol/L (22-26); PO2 ABG 60.7 mmHg (80.0-100.0)
[2020-09-21 05:11] LABS: Blood Gas Operator Identificat HARKR; Blood Gas Sample Site Radial, right
[2020-09-21 05:20] LABS: Lactate (Lactic Acid level) 2.1 mmol/L (0.5-2.2)
--- NOTE | 2020-09-21 06:18 | PC.NURSE ---
uneventful night, PRN Ativan administered per request with AM meds, HHF increased to 40L 65% per RT, denies pain and SOB, follows commands, AO x3
[2020-09-21 07:46] LABS: Glucose Point of Care 184 mg/dL (70-110)
[2020-09-21] MEDS: ascorbic acid 500 mg Tablet 1000 MG PO ×2 (08:41→17:56)
[2020-09-21] MEDS: aspirin 81 mg EC Tablet PO (08:41)
[2020-09-21] MEDS: cholecalciferol (vitamin D3) 1,000 unit Tablet 2000 UNIT PO (08:42)
[2020-09-21] MEDS: sertraline 50 mg Tablet 75 MG PO (08:42)
[2020-09-21] MEDS: zinc gluconate 50 mg Tablet PO (08:42)
[2020-09-21] MEDS: pantoprazole DR 40 mg Tablet PO (08:42)
[2020-09-21] MEDS: carvedilol 3.125 mg Tablet PO ×2 (08:42→17:56)
[2020-09-21] MEDS: cetirizine 10 mg Tablet PO (08:42)
[2020-09-21 10:46] LABS: Bilirubin Urine Neg (Negative); Blood Urine 3+ (Negative); Glucose Urine UA Norm (Normal); Ketones Urine 1+ (Negative); Leukocyte Esterase Urine 2+ (Negative); Nitrate Urine Negative (Negative); Protein Urine Trace (Negative); Urine Appearance Turbid (CLEAR); Urine Color Brown (Yellow); Urobilinogen Urine 1 mg/dL (Negative); pH Urine 6.5 (5-7)
[2020-09-21 10:47] LABS: Add Urine Microscopic? YES
[2020-09-21 10:52] LABS: Amorphous Sediment Urine 4+ /hpf; Bacteria Urine 2+ /hpf; Squamous Epithelial Cell Urine 0-4 /hpf (0-5); WBC Urine 80-100 /hpf (0-5)
[2020-09-21 10:53] LABS: Add Urine Culture? Yes
[2020-09-21 10:54] LABS: RBC Urine TOO NUMEROUS TO CNT /hpf (0-2)
[2020-09-21 10:58] LABS: Sulfosalicylic Acid Urine Positive (Negative)
[2020-09-21] MEDS: dexamethasone 4 mg/mL INJ 6 MG IVP (11:34)
[2020-09-21] MEDS: potassium chloride ER 20 mEq Tablet 40 MEQ PO (11:34)
[2020-09-21] MEDS: FUROsemide 10 mg/mL SDV 4mL 40 MG IVP (11:34)
--- NOTE | 2020-09-21 11:51 | USR_ITS ---
PROCEDURE INFORMATION: Exam: US Retroperitoneal Complete, Kidneys Aorta IVC. Exam date and time: 09/21/2020 1:06 PM Age: 74 years old Clinical indication: Abnormal findings; Abnormal lab test; Abnormal kidney function lab tests; Additional info: Evaluate for obstructive uropathy TECHNIQUE: Imaging protocol: Real-time ultrasound of the retroperitoneum with image documentation. Complete exam. COMPARISON: No relevant prior studies available. FINDINGS: Right kidney: Three simple cysts are noted to protrude from the lower pole right kidney with the largest measuring 2.6 cm in greatest dimension. There is no right hydronephrosis or nephrolithiasis. The echotexture of the right kidney is appropriate. The right kidney measures 8.5 cm in length. The echotexture of the right kidney is appropriate. Left kidney: The left kidney is appropriate in appearance. No stones or hydronephrosis. There is a 7 mm cyst lower pole left kidney. The left kidney measures 9.3 cm in length. The echotexture of the left kidney is appropriate. Aorta: There is aneurysmal dilatation of the distal abdominal aorta that is partially obscured by bowel gas artifact. The aortic aneurysm measures 5.1 x 5.3 cm. No evidence of retroperitoneal fluid or leaking aneurysm. There is no aortic dissection but there is some noncalcified thrombus in the aneurysm. The aortic bifurcation is obscured by bowel gas artifact. Common iliac arteries: Obscured by bowel gas artifact. Inferior vena cava: Poorly visualized due to bowel gas. Other findings: The exam is limited by extensive bowel gas artifact. US/US renal BI* [id number] IMPRESSION: 1. 5.1 x 5.3 cm distal aortic aneurysm without evidence of leak or dissection. Bifurcation is obscured by bowel gas artifact. 2. No hydronephrosis or nephrolithiasis. There are bilateral renal cortical cysts.
--- NOTE | 2020-09-21 11:51 | P.PN_ITS ---
Subjective Subjective: Interval history: Patient was examined this morning, he is lying on his side, he still me that he is breathing better, he did have one episode of shortness of breath overnight, no fevers, no chills, no chest pain, does have episodes of sinus tachycardia this morning, has no chest pain complaints, Vitals/I&O/Wt Last Vital Signs Temp 97.8 F 09/21/20 07:00 Pulse 111 H 09/21/20 11:41 Resp 24 H 09/21/20 11:41 BP 116/76 09/21/20 10:00 Pulse Ox 97 09/21/20 11:41 09/20/20 09/21/20 09/21/20 22:59 06:59 14:59 Intake Total 550 / 1450 200 / 1650 250 / 250 Output Total 600 / 1700 900 / 2600 Balance -50 / -250 -700 / -950 250 / 250 Physical Exam Const: COMMON NORMALS: no acute distress and patient oriented x3 HENMT: COMMON NORMALS: normocephalic HEAD & SCALP: normocephalic Neck/C-Spine: COMMON NORMALS: no JVD Resp: COMMON NORMALS: normal respiratory effort, No retractions and No use of accessory muscles AUSCULTATION: diminished lung sounds (In all lung mcknight) Cardio: COMMON NORMALS: no JVD, regular rhythm, S1 normal heart sound present and S2 normal heart sound present RATE: tachycardic RHYTHM: regular rhythm HEART SOUNDS: S1 normal heart sound present and S2 normal heart sound present GI: COMMON NORMALS: Normal to inspection, nondistended, normoactive bowel sounds present, Soft to palpation, non-tender, No hepatosplenomegaly present, no masses and no bruits PALPATION: Yes Soft to palpation and Yes No hepatosplenomegaly present Extremity: COMMON NORMALS: capillary refill normal, no clubbing, cyanosis or edema, no calf tenderness and no pedal edema Neuro: COMMON NORMALS: patient oriented x3 Psych: COMMON NORMALS: mental status grossly normal Urinary Catheter Management^: Estrada: Cath Placed During This Visit: no Reason for Continuing Indwelling Catheter: Accurate Measurement of Urinary Output in Critically Ill Patients Data : 09/21/20 04:40 09/20/20 04:50 Micro: Microbiology 09/16/20 10:16 Blood Culture - Final Blood NO GROWTH AFTER 5 DAYS A&P Assessment and plan (1) Acute respiratory failure with hypoxia: -Secondary to COPD, COVID-19 pneumonia, secondary bacterial pneumonia, pulmonary edema secondary to systolic CHF Plan: -Admit to viral ICU -Patient is DNR/DNI, confirmed with patient multiple times -Full dose Lovenox for hypercoagulability prophylaxis -Decadron -Insulin sliding scale, monitor blood sugars -Convalescent plasma, finished -Remdesivir, finished -De-escalate to Primaxin and azithromycin -Lasix 40 mg IV twice daily, with potassium replacement, monitor creatinine is 1.1, monitor urine output, fluid restrictions 1500 cc, potassium replacement -Urine is quite turbid this morning, no evidence of UTI, expand antibiotic coverage to Primaxin to cover for ESBL organisms, renal ultrasound ordered -Sinus tachycardia, likely secondary from hypoxia, continue to monitor, on Coreg 3.25 twice daily -Sputum cultures, blood cultures, urine bacterial antigens -Covid PCR positive -Monitor respiratory status closely -High flow during the day, BiPAP during the night, BiPAP as needed -Vitamin C, zinc -Advair, Spiriva, albuterol -Incentive spirometer use, Acapella -Encouraged to get up out of bed Plan for today continue diuresis expand antibiotic therapy to Primaxin, add renal ultrasound to rule out obstructive uropathy, monitor sinus tachycardia, monitor for chest pain Status: Acute (2) Pneumonia due to COVID-19 virus: Status: Acute (3) Secondary bacterial pneumonia: Status: Acute (4) Systolic CHF: -Repeat echocardiogram shows: Left ventricle is mildly dilated. LV systolic function is moderate to severely reduced with EF of 30 to 35%. Above-mentioned regional wall motion abnormalities are seen. Mild to moderate aortic regurgitation is seen. Trace pulmonic regurgitation is seen. Compared to prior echocardiogram from 03/12/2020, LV function is reduced to 30 to 35% now. -Has no chest pain complaints, no palpitations complaints, has shortness of breath -Patient had a low probability obstructive CAD cardiac stress test in 2014 -Question is is it ischemic versus nonischemic, or related to acute respiratory failure and COVID-19 as above Plan: -Aspirin 81 mg -Atorvastatin 40 mg -Coreg 3.125 twice daily -Therapeutic Lovenox -Serial EKGs, serial troponins, telemetry monitoring -At some point he will require a coronary angiogram Status: Acute (5) Acute exacerbation of chronic obstructive pulmonary disease: Status: Acute (6) H/O asbestos exposure: Status: Acute (7) Diabetes 1.5, managed as type 2: Status: Acute Additional A&P Information TSH is low at 0.08, free T3, T4 within normal limits, likely subclinical hyperthyroidism, will repeat TSH in 6 weeks Attestations Medical Necessity Statement*: Patient requires hospitalization due to COPD, COVID-19 pneumonia, secondary bacterial pneumonia, pulmonary edema, systolic CHF Coding Level of Care Code Acute 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
[2020-09-21 11:54] LABS: Glucose Point of Care 194 mg/dL (70-110)
[2020-09-21] MEDS: acetaminophen 325 mg Tablet 650 MG PO (12:09)
[2020-09-21 12:29] LABS: Glucose Point of Care 173 mg/dL (70-110)
[2020-09-21] MEDS: azithromycin 500 MG in sodium chloride 0.9% 250 ML 250 MG IV (15:00)
--- NOTE | 2020-09-21 15:10 | PC.SOCIAL ---
IM follow up provided to and she verbalized understanding
[2020-09-21 15:35] LABS: NT Pro B Type Natriuretic Pept 5450 pg/mL (0-450); Procalcitonin 0.34 ng/mL (0-0.5)
[2020-09-21 15:46] LABS: Alanine Aminotransferase 23 U/L (0-41); Albumin Level 3.4 g/dL (3.5-5.2); Alkaline Phosphatase 72 IU/L (40-130); Anion Gap 22.5 (5-19); Aspartate Amino Transferase 13 U/L (0-40); Blood Urea Nitrogen 76 mg/dL (8-23); Calcium 9.2 mg/dL (8.5-10.5); Carbon Dioxide 28 mmol/L (22-29); Chloride 97 mmol/L (98-107); Globulin 3.3 g/dL (1.3-4.6); Glucose 170 mg/dL (65-115); Magnesium 2.6 mg/dL (1.7-2.3); Osmolality Calculated 323 mOsm/kg (285-295); Potassium 4.5 mmol/L (3.5-5.1); Sodium 143 mmol/L (136-145); Total Protein 6.7 g/dL (6.6-8.7)
[2020-09-21] MEDS: ondansetron 2 mg/ML SDV 2 mL 4 MG IVP (16:31)
[2020-09-21 16:45] LABS: Glucose Point of Care 170 mg/dL (70-110)
--- NOTE | 2020-09-21 17:09 | PC.NURSE ---
[address] Hansen. Reported that patient is more short of breath today, discussed elevated heart rate and Coreg dose. Reported dark cloudy urine. Orders for UA and to irrigate Estrada. Patient reported no pain at this time. 1145 Physical therapy at bedside. Educated patient on the benefits of sitting up in the chair. Patient states he tried his best but he too short of breath to stand up. Vitals stable. O2 sat above 90% throughout therapy. Patient helped back to bed. Discussed baseline quality of life. Patient expressed low activity tolerance d/t chronic COPD and CHF before COVID dx, which has made it worse. 1240 Updated patient's . Discussed plan of care that would be best for patient's quality of life. Will set up a call with the doctor. 1345 Irrigated patient's Estrada with 150 ml of sterile water. Flushed easily, all fluid returned. [address] Hansen that lab and ultrasound results were back. Also reported that urine has cleared up post irrigation.
[2020-09-21] MEDS: atorvastatin 40 mg Tablet PO (21:16)
[2020-09-22] VITALS (34 sets, daily range): BP systolic 88–125; BP diastolic 53–80; PULSE 84–114; RESP 15–29; TEMP 36.2–37.8; O2SAT 90–97
[2020-09-22 04:09] LABS: Basophils % 0.2 %; Hematocrit 48.5 % (42.0-52.0); Hemoglobin 15.6 g/dL (11.7-16.6); Lymphocytes # 0.3 10^3/uL (0.8-4.8); Lymphocytes % 2.1 %; Mean Corpuscular HGB Conc 32.2 g/dL (30.0-36.0); Mean Corpuscular Volume 90.1 fL (80-94); Mean Platelet Volume 11.4 fL (7.4-10.4); Monocytes # 0.8 10^3/uL (0.2-0.9); Monocytes % 5.9 %; Neutrophils # 11.71 10^3/uL (1.8-7.7); Neutrophils % 91.2 %; Nucleated Red Blood Cells % 0 %; Platelet Count 220 10^3/cmm (130-400); Red Blood Count 5.38 10^6/uL (4.1-5.3); Red Cell Distribution Width 12.8 % (12.1-15.1); White Blood Count 12.8 10^3/uL (4.0-10.0)
[2020-09-22 04:24] LABS: Lactate (Lactic Acid level) 1.5 mmol/L (0.5-2.2)
[2020-09-22] MEDS: ipratropium-albuterol 3 mL Neb INHALATION ×5 (04:29→19:54)
[2020-09-22 04:38] LABS: NT Pro B Type Natriuretic Pept 3848 pg/mL (0-450); Procalcitonin 0.34 ng/mL (0-0.5)
[2020-09-22] MEDS: LORazepam 1 mg Tablet PO ×2 (04:45→21:19)
[2020-09-22] MEDS: enoxaparin 60 mg/0.6 mL Syringe SUBCUT ×2 (04:48→17:15)
[2020-09-22 04:50] LABS: Albumin Level 3.2 g/dL (3.5-5.2); Alkaline Phosphatase 61 IU/L (40-130); Calcium 8.9 mg/dL (8.5-10.5); Carbon Dioxide 28 mmol/L (22-29); Chloride 100 mmol/L (98-107); Creatine Phosphokinase 33 U/L (39-308); Glucose 183 mg/dL (65-115); Magnesium 2.7 mg/dL (1.7-2.3); Osmolality Calculated 330 mOsm/kg (285-295); Sodium 144 mmol/L (136-145); Total Bilirubin 0.8 mg/dL (0.15-1.2); Total Protein 6.2 g/dL (6.6-8.7)
[2020-09-22 04:57] LABS: ABG PCO2 43.6 mmHg (35-45); ABG PH Result 7.43 (7.35-7.45); Arterial Blood Gas Hematocrit 48.4 % (42-52); Base Excess ABG 3.6 mmol/L (-2.0-2.0); Blood Gas Sample Type Arterial; HCO3 ABG 28.6 mmol/L (22-26); PO2 ABG 60.9 mmHg (80.0-100.0)
[2020-09-22 04:58] LABS: Blood Gas Operator Identificat HARKR; Blood Gas Sample Site Brachial, right
[2020-09-22 05:09] LABS: Alanine Aminotransferase 21 U/L (0-41); Anion Gap 20.6 (5-19); Aspartate Amino Transferase 15 U/L (0-40); Potassium 4.6 mmol/L (3.5-5.1)
[2020-09-22 05:11] LABS: Phosphorus 7.6 mg/dL (2.5-4.5)
[2020-09-22 05:12] LABS: Blood Urea Nitrogen 89 mg/dL (8-23)
--- NOTE | 2020-09-22 07:00 | XRR_ITS ---
PROCEDURE INFORMATION: Exam: XR Chest, 1 View Exam date and time: 09/21/2020 11:59 PM Age: 74 years old Clinical indication: Dyspnea; Additional info: SOB TECHNIQUE: Imaging protocol: XR of the chest Views: 1 view. COMPARISON: CR XR chest 1V portable [id number] 09/20/2020 5:56 AM FINDINGS: Lungs: There is bilateral overinflation of the lungs with flattening of the diaphragm indicating chronic pulmonary emphysema. Again seen are patchy opacities in the left lung base. Allowing for differences in patient positioning these have not significantly changed. Pleural spaces: Unremarkable. No pleural effusion. No pneumothorax. Heart/Mediastinum: Unremarkable. No cardiomegaly. Bones/joints: Unremarkable. XR/XR chest 1V portable [id number] IMPRESSION: 1. Overinflated lungs indicating emphysema. 2. Patchy left basilar opacities unchanged.
[2020-09-22 08:16] LABS: Glucose Point of Care 153 mg/dL (70-110)
[2020-09-22 08:16] LABS: Glucose Point of Care 205 mg/dL (70-110)
[2020-09-22] MEDS: pantoprazole DR 40 mg Tablet PO (08:28)
[2020-09-22] MEDS: cetirizine 10 mg Tablet PO (08:28)
[2020-09-22] MEDS: cholecalciferol (vitamin D3) 1,000 unit Tablet 2000 UNIT PO (08:29)
[2020-09-22] MEDS: aspirin 81 mg EC Tablet PO (08:29)
[2020-09-22] MEDS: ascorbic acid 500 mg Tablet 1000 MG PO ×2 (08:29→17:16)
[2020-09-22] MEDS: zinc gluconate 50 mg Tablet PO (08:29)
[2020-09-22] MEDS: carvedilol 3.125 mg Tablet PO ×2 (08:29→17:16)
[2020-09-22] MEDS: sertraline 50 mg Tablet 75 MG PO (08:29)
[2020-09-22 10:16] LABS: Oxygen Device HHF
[2020-09-22 11:35] LABS: Glucose Point of Care 195 mg/dL (70-110)
[2020-09-22] MEDS: dexamethasone 4 mg/mL INJ 6 MG IVP (11:53)
--- NOTE | 2020-09-22 12:19 | PM.PN ---
Subjective Subjective: Interval history: This morning patient was examined he is afebrile, he is down to 40 L, he is resting, has no complaints, no fevers, no chills, no chest pain complaints, still having some shortness of breath with exertion I had extensive discussion with patient's yesterday about patient's current clinical status with COVID-19 pneumonia, acute respiratory failure, high oxygen requirements, new onset heart failure, worsening renal function, she has told me that he has told her that he does not want to have aggressive interventions, he would really want to come home to her, he and his are possibly think about hospice as an option to get him home Vitals/I&O/Wt Last Vital Signs Temp 97.8 F 09/22/20 08:00 Pulse 104 H 09/22/20 11:33 Resp 16 09/22/20 11:33 BP 113/70 09/22/20 08:00 Pulse Ox 92 09/22/20 11:33 09/21/20 09/22/20 09/22/20 22:59 06:59 14:59 Intake Total 640 / 1340 700 / 2040 240 / 240 Output Total 700 / 1100 750 / 1850 Balance -60 / 240 -50 / 190 240 / 240 Physical Exam Const: COMMON NORMALS: no acute distress and patient oriented x3 HENMT: COMMON NORMALS: normocephalic HEAD & SCALP: normocephalic Neck/C-Spine: COMMON NORMALS: no JVD Resp: COMMON NORMALS: normal respiratory effort, No retractions and No use of accessory muscles AUSCULTATION: diminished lung sounds (In all lung mcknight) Cardio: COMMON NORMALS: no JVD, regular rate, regular rhythm, S1 normal heart sound present and S2 normal heart sound present RATE: regular rate RHYTHM: regular rhythm HEART SOUNDS: S1 normal heart sound present and S2 normal heart sound present GI: COMMON NORMALS: Normal to inspection, nondistended, normoactive bowel sounds present, Soft to palpation, non-tender, No hepatosplenomegaly present, no masses and no bruits PALPATION: Yes Soft to palpation and Yes No hepatosplenomegaly present Extremity: COMMON NORMALS: capillary refill normal, no clubbing, cyanosis or edema, no calf tenderness and no pedal edema Neuro: COMMON NORMALS: patient oriented x3 Psych: COMMON NORMALS: mental status grossly normal Urinary Catheter Management^: Estrada: Cath Placed During This Visit: no Reason for Continuing Indwelling Catheter: Accurate Measurement of Urinary Output in Critically Ill Patients Data : 09/22/20 04:00 09/22/20 04:00 Micro: Microbiology 09/21/20 10:10 Urine Culture - Preliminary Urine,Clean Catch 09/16/20 12:12 Blood Culture - Final Blood NO GROWTH AFTER 5 DAYS 09/16/20 10:16 Blood Culture - Final Blood NO GROWTH AFTER 5 DAYS A&P Assessment and plan (1) Acute respiratory failure with hypoxia: -Secondary to COPD, COVID-19 pneumonia, secondary bacterial pneumonia, pulmonary edema secondary to systolic CHF Plan: -Admit to viral ICU -Patient is DNR/DNI, confirmed with patient multiple times -Full dose Lovenox for hypercoagulability prophylaxis -Decadron -Insulin sliding scale, monitor blood sugars -Convalescent plasma, finished -Remdesivir, finished -De-escalate to Primaxin and azithromycin -Currently Lasix 40 mg IV twice daily is on hold due to creatinine of 2.1, BUN of 89 with potassium replacement, urine output 1450 cc, fluid restrictions 1500 cc, potassium replacement -Patient is developing acute renal failure, creatinine 2.1, BUN 84, continues to have good urine output -Urine shows evidence of UTI, expand antibiotic coverage to Primaxin to cover for ESBL organisms, renal ultrasound no significant obstructive uropathy -Sinus tachycardia, likely secondary from hypoxia, continue to monitor, on Coreg 3.25 twice daily -Sputum cultures, blood cultures, urine bacterial antigens -Covid PCR positive -Monitor respiratory status closely -High flow during the day, BiPAP during the night, BiPAP as needed -Vitamin C, zinc -Advair, Spiriva, albuterol -Incentive spirometer use, Acapella -Encouraged to get up out of bed Plan for today continue antibiotic therapy, hold diuresis, encourage ambulation, pulmonary toilet Status: Acute (2) Pneumonia due to COVID-19 virus: Status: Acute (3) Secondary bacterial pneumonia: Status: Acute (4) Systolic CHF: -Repeat echocardiogram shows: Left ventricle is mildly dilated. LV systolic function is moderate to severely reduced with EF of 30 to 35%. Above-mentioned regional wall motion abnormalities are seen. Mild to moderate aortic regurgitation is seen. Trace pulmonic regurgitation is seen. Compared to prior echocardiogram from 03/12/2020, LV function is reduced to 30 to 35% now. -Has no chest pain complaints, no palpitations complaints, has shortness of breath -Patient had a low probability obstructive CAD cardiac stress test in 2014 -Question is is it ischemic versus nonischemic, or related to acute respiratory failure and COVID-19 as above Plan: -Aspirin 81 mg -Atorvastatin 40 mg -Coreg 3.125 twice daily -Therapeutic Lovenox -Serial EKGs, serial troponins, telemetry monitoring -At some point he will require cardiac intervention, if that is what patient desires, but it seems like patient and family does not want to do aggressive interventions Status: Acute (5) Acute exacerbation of chronic obstructive pulmonary disease: Status: Acute (6) H/O asbestos exposure: Status: Acute (7) Diabetes 1.5, managed as type 2: Status: Acute Additional A&P Information TSH is low at 0.08, free T3, T4 within normal limits, likely subclinical hyperthyroidism, will repeat TSH in 6 weeks Attestations Medical Necessity Statement*: Patient requires hospitalization for acute respiratory failure secondary COVID-19, secondary bacterial pneumonia, CHF. 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
[2020-09-22] MEDS: azithromycin 500 MG in sodium chloride 0.9% 250 ML 250 MG IV (15:12)
[2020-09-22 17:05] LABS: Glucose Point of Care 104 mg/dL (70-110)
[2020-09-22] MEDS: sodium chloride 0.9% 1,000 ML 100 ML IV (18:04)
--- NOTE | 2020-09-22 18:45 | PC.NURSE ---
Received bedside report on patient from Maxine Melo RN. Assumed care at this time.
[2020-09-22 20:59] LABS: Glucose Point of Care 153 mg/dL (70-110)
[2020-09-22] MEDS: atorvastatin 40 mg Tablet PO (21:19)
[2020-09-23] VITALS (32 sets, daily range): BP systolic 83–121; BP diastolic 46–74; PULSE 78–100; RESP 15–32; TEMP 36.2–36.6; O2SAT 82–100
[2020-09-23] MEDS: ipratropium-albuterol 3 mL Neb INHALATION ×7 (00:04→23:20)
[2020-09-23 04:02] LABS: ABG PCO2 43.8 mmHg (35-45); ABG PH Result 7.44 (7.35-7.45); Arterial Blood Gas Hematocrit 44.1 % (42-52); Base Excess ABG 4.6 mmol/L (-2.0-2.0); Blood Gas Allen Test Pos; Blood Gas Sample Site Radial, right; Blood Gas Sample Type Arterial; HCO3 ABG 29.5 mmol/L (22-26); Oxygen Device NC; PO2 ABG 57.6 mmHg (80.0-100.0)
[2020-09-23 04:28] LABS: Basophils % 0.2 %; Hematocrit 42.9 % (42.0-52.0); Hemoglobin 14.2 g/dL (11.7-16.6); Lymphocytes # 0.3 10^3/uL (0.8-4.8); Lymphocytes % 2.4 %; Mean Corpuscular HGB Conc 33.1 g/dL (30.0-36.0); Mean Corpuscular Hemoglobin 29.6 pg (28.0-34.0); Mean Corpuscular Volume 89.6 fL (80-94); Mean Platelet Volume 11.6 fL (7.4-10.4); Monocytes # 0.6 10^3/uL (0.2-0.9); Monocytes % 5.9 %; Neutrophils % 90.8 %; Nucleated Red Blood Cells % 0 %; Platelet Count 165 10^3/cmm (130-400); Red Blood Count 4.79 10^6/uL (4.1-5.3); Red Cell Distribution Width 12.6 % (12.1-15.1); White Blood Count 10.7 10^3/uL (4.0-10.0)
[2020-09-23 04:45] LABS: Lactate (Lactic Acid level) 1.2 mmol/L (0.5-2.2)
[2020-09-23] MEDS: sodium chloride 0.9% 1,000 ML 100 ML IV ×2 (04:47→13:00)
[2020-09-23] MEDS: enoxaparin 60 mg/0.6 mL Syringe SUBCUT ×2 (04:48→16:23)
[2020-09-23 04:55] LABS: INR 1.28 (0.8-1.2); NT Pro B Type Natriuretic Pept 1756 pg/mL (0-450); Procalcitonin 0.25 ng/mL (0-0.5)
[2020-09-23 05:08] LABS: Alanine Aminotransferase 15 U/L (0-41); Albumin Level 2.6 g/dL (3.5-5.2); Alkaline Phosphatase 57 IU/L (40-130); Anion Gap 18.5 (5-19); Aspartate Amino Transferase 11 U/L (0-40); C Reactive Protein 9.8 mg/L (0.0-4.9); Carbon Dioxide 25 mmol/L (22-29); Chloride 103 mmol/L (98-107); Creatine Phosphokinase 57 U/L (39-308); Globulin 2.4 g/dL (1.3-4.6); Glucose 160 mg/dL (65-115); Magnesium 2.5 mg/dL (1.7-2.3); Osmolality Calculated 328 mOsm/kg (285-295); Phosphorus 4.8 mg/dL (2.5-4.5); Potassium 3.5 mmol/L (3.5-5.1); Sodium 143 mmol/L (136-145); Total Bilirubin 0.7 mg/dL (0.15-1.2)
[2020-09-23 05:10] LABS: Blood Urea Nitrogen 93 mg/dL (8-23)
[2020-09-23] MEDS: LORazepam 1 mg Tablet PO (06:00)
--- NOTE | 2020-09-23 07:00 | XR_ITS ---
WS: [id number] PORTABLE CHEST HISTORY: sob COMPARISON: 09/22/2020 and 09/20/2020 Marked pulmonary hyperinflation with lucencies in the upper lung mcknight from emphysema. Increasing co nsolidation in the lingula. Additional increasing consolidation at the RIGHT lung base. Mild blunting of the costophrenic angles. No pneumothorax. Cardiac size: Mildly enlarged cardiac silhouette. Mediastinum/Aorta: Mild atherosclerosis aorta. Age-related changes at the shoulders. XR/XR chest 1V portable [id number] IMPRESSION: 1. New subsegmental opacifications in the lingula and at the RIGHT lung base. 2. Severe emphysema.
[2020-09-23] MEDS: cholecalciferol (vitamin D3) 1,000 unit Tablet 2000 UNIT PO (08:33)
[2020-09-23] MEDS: aspirin 81 mg EC Tablet PO (08:34)
[2020-09-23] MEDS: ascorbic acid 500 mg Tablet 1000 MG PO (08:34)
[2020-09-23] MEDS: pantoprazole DR 40 mg Tablet PO (08:34)
[2020-09-23] MEDS: cetirizine 10 mg Tablet PO (08:34)
[2020-09-23] MEDS: carvedilol 3.125 mg Tablet PO (08:34)
[2020-09-23] MEDS: sertraline 50 mg Tablet 75 MG PO (08:34)
[2020-09-23] MEDS: zinc gluconate 50 mg Tablet PO (08:34)
[2020-09-23] MEDS: sodium chloride 0.9% 1,000 ML 75 ML IV (09:50)
--- NOTE | 2020-09-23 11:14 | PM.PN ---
Subjective Subjective: Interval history: This morning patient was examined, he tells me he is feeling better, has some shortness of breath with exertion, but overall doing better, I had a brief discussion with patient about his potential discharge planning, I advised him that if he continues to improve, and we are able to wean him down to nasal cannula, we will be able to get him home, his had a discussion with me about hospice, we can certainly send him home, but home with hospice is another option, patient says he would think about this, will discuss with his family Vitals/I&O/Wt Last Vital Signs Temp 97.1 F L 09/23/20 04:00 Pulse 90 09/23/20 08:48 Resp 20 H 09/23/20 08:48 BP 106/69 09/23/20 04:00 Pulse Ox 93 09/23/20 08:48 09/22/20 09/23/20 09/23/20 22:59 06:59 14:59 Intake Total 850 / 1190 1440 / 2630 240 / 240 Output Total 200 / 200 875 / 1075 500 / 500 Balance 650 / 990 565 / 1555 -260 / -260 Physical Exam Const: COMMON NORMALS: no acute distress and patient oriented x3 HENMT: COMMON NORMALS: normocephalic HEAD & SCALP: normocephalic Neck/C-Spine: COMMON NORMALS: no JVD Resp: COMMON NORMALS: normal respiratory effort, No retractions and No use of accessory muscles AUSCULTATION: diminished lung sounds diffuse Cardio: COMMON NORMALS: no JVD, regular rate, regular rhythm, S1 normal heart sound present and S2 normal heart sound present RATE: regular rate RHYTHM: regular rhythm HEART SOUNDS: S1 normal heart sound present and S2 normal heart sound present GI: COMMON NORMALS: Normal to inspection, nondistended, normoactive bowel sounds present, Soft to palpation, non-tender, No hepatosplenomegaly present, no masses and no bruits PALPATION: Yes Soft to palpation and Yes No hepatosplenomegaly present Extremity: COMMON NORMALS: capillary refill normal, no clubbing, cyanosis or edema, no calf tenderness and no pedal edema Neuro: COMMON NORMALS: patient oriented x3 Psych: COMMON NORMALS: mental status grossly normal Urinary Catheter Management^: Estrada: Cath Placed During This Visit: no Reason for Continuing Indwelling Catheter: Accurate Measurement of Urinary Output in Critically Ill Patients Data : 09/23/20 04:15 09/23/20 04:15 Micro: Microbiology 09/21/20 10:10 Urine Culture - Final Urine,Clean Catch A&P Assessment and plan (1) Acute respiratory failure with hypoxia: -Secondary to COPD, COVID-19 pneumonia, secondary bacterial pneumonia, pulmonary edema secondary to systolic CHF Plan: -Admit to viral ICU -Patient is DNR/DNI -Full dose Lovenox for hypercoagulability prophylaxis -Decadron -Insulin sliding scale, monitor blood sugars -Convalescent plasma, finished -Remdesivir, finished -De-escalate to Primaxin and azithromycin -Currently has developed acute renal failure, urine output initially decreased, but now improving, after fluid therapy, has 1055 urine output, creatinine down to 1.8, BUN up to 94, continue normal saline 75 cc an hour -Currently Lasix 40 mg IV twice daily is on hold due to creatinine of 1.8, BUN of 94 with potassium replacement, urine output 1450 cc, fluid restrictions 1500 cc, potassium replacement -Urine shows evidence of UTI, urine looked brown and turbid, patient has been on expanded antibiotic therapy Primaxin to cover for ESBL organisms, for the last 48 hours, renal ultrasound no significant obstructive uropathy -Sinus tachycardia, likely secondary from hypoxia, continue to monitor, on Coreg 3.25 twice daily -Sputum cultures, blood cultures, urine bacterial antigens -Covid PCR positive -Monitor respiratory status closely -High flow during the day, BiPAP during the night, BiPAP as needed -Vitamin C, zinc -Advair, Spiriva, albuterol -Incentive spirometer use, Acapella -Encouraged to get up out of bed Plan for today continue antibiotic therapy, hold diuresis, encourage ambulation, pulmonary toilet Status: Acute (2) Pneumonia due to COVID-19 virus: Status: Acute (3) Secondary bacterial pneumonia: Status: Acute (4) Systolic CHF: -Repeat echocardiogram shows: Left ventricle is mildly dilated. LV systolic function is moderate to severely reduced with EF of 30 to 35%. Above-mentioned regional wall motion abnormalities are seen. Mild to moderate aortic regurgitation is seen. Trace pulmonic regurgitation is seen. Compared to prior echocardiogram from 03/12/2020, LV function is reduced to 30 to 35% now. -Has no chest pain complaints, no palpitations complaints, has shortness of breath -Patient had a low probability obstructive CAD cardiac stress test in 2015 -Question is is it ischemic versus nonischemic, or could this be COVID-19 related myocarditis, or related to acute respiratory failure Plan: -Aspirin 81 mg -Atorvastatin 40 mg -Coreg 3.125 twice daily -Therapeutic Lovenox -Continue telemetry monitoring -At some point he will require cardiac intervention in the future, if that is what patient desires, but it seems like patient and family does not want to do aggressive interventions Status: Acute (5) Acute exacerbation of chronic obstructive pulmonary disease: Status: Acute (6) H/O asbestos exposure: Status: Acute (7) Diabetes 1.5, managed as type 2: Status: Acute (8) Acute renal failure: Multifactorial related to COVID-19, sepsis, suspect cardiorenal syndrome, diuretic therapy Status: Acute (9) Abdominal aortic aneurysm: 5.1 x 5.3 cm, without evidence of leak, or dissection Patient will require surgical evaluation, and monitoring of aortic aneurysm diameter size at some point once he is over Covid However patient and family do not want aggressive interventions But will discuss nearing discharge Status: Acute (10) Myocarditis due to COVID-19 virus: Status: Acute Additional A&P Information TSH is low at 0.08, free T3, T4 within normal limits, likely subclinical hyperthyroidism, will repeat TSH in 6 weeks Attestations Medical Necessity Statement*: Patient requires hospitalization for acute respiratory failure secondary to COVID-19, acute renal failure, systolic heart failure, critical care time spent 45 minutes Coding Level of Care Code Acute Contract Administration Coordinator for [facility] Fwd Diagnoses Acute respiratory failure with hypoxia J96.01 Pneumonia due to COVID-19 virus U07.1; J12.89 Secondary bacterial pneumonia J15.9 Systolic CHF I50.20 Acute exacerbation of chronic obstructive pulmonary disease J44.1 H/O asbestos exposure Z77.090 Diabetes 1.5, managed as type 2 E13.9 Acute renal failure N17.9 Abdominal aortic aneurysm I71.4 Myocarditis due to COVID-19 virus U07.1; I40.0
[2020-09-23 11:36] LABS: Glucose Point of Care 176 mg/dL (70-110)
[2020-09-23] MEDS: dexamethasone 4 mg/mL INJ 6 MG IVP (11:52)
--- NOTE | 2020-09-23 13:52 | DCPLANNER ---
IMM completed with pt's , Silvina on 09/23/20 @ [id number].
[2020-09-23] MEDS: azithromycin 500 MG in sodium chloride 0.9% 250 ML 250 MG IV (14:44)
[2020-09-23 20:14] LABS: Glucose Point of Care 181 mg/dL (70-110)
[2020-09-23] MEDS: atorvastatin 40 mg Tablet PO (20:41)
[2020-09-24] VITALS (36 sets, daily range): BP systolic 91–125; BP diastolic 48–73; PULSE 71–93; RESP 15–43; TEMP 36.5–37.4; O2SAT 90–100
[2020-09-24] MEDS: ipratropium-albuterol 3 mL Neb INHALATION ×5 (03:19→23:34)
[2020-09-24 04:20] LABS: Basophils % 0.1 %; Hematocrit 37.4 % (42.0-52.0); Hemoglobin 12.4 g/dL (11.7-16.6); Lymphocytes # 0.2 10^3/uL (0.8-4.8); Lymphocytes % 1.8 %; Mean Corpuscular HGB Conc 33.2 g/dL (30.0-36.0); Mean Corpuscular Hemoglobin 29.7 pg (28.0-34.0); Mean Corpuscular Volume 89.7 fL (80-94); Mean Platelet Volume 11.7 fL (7.4-10.4); Monocytes # 0.5 10^3/uL (0.2-0.9); Monocytes % 5.8 %; Neutrophils # 8.05 10^3/uL (1.8-7.7); Neutrophils % 91.7 %; Nucleated Red Blood Cells % 0 %; Platelet Count 135 10^3/cmm (130-400); Red Blood Count 4.17 10^6/uL (4.1-5.3); Red Cell Distribution Width 12.6 % (12.1-15.1); White Blood Count 8.8 10^3/uL (4.0-10.0)
[2020-09-24 04:31] LABS: INR 1.26 (0.8-1.2)
[2020-09-24 04:41] LABS: Albumin Level 2.6 g/dL (3.5-5.2); Alkaline Phosphatase 57 IU/L (40-130); Blood Urea Nitrogen 67 mg/dL (8-23); C Reactive Protein 8.5 mg/L (0.0-4.9); Calcium 7.8 mg/dL (8.5-10.5); Carbon Dioxide 28 mmol/L (22-29); Chloride 106 mmol/L (98-107); Glucose 165 mg/dL (65-115); Magnesium 2.5 mg/dL (1.7-2.3); Osmolality Calculated 319 mOsm/kg (285-295); Sodium 143 mmol/L (136-145); Total Bilirubin 0.7 mg/dL (0.15-1.2); Total Protein 4.6 g/dL (6.6-8.7)
[2020-09-24 04:42] LABS: Lactate (Lactic Acid level) 1.1 mmol/L (0.5-2.2)
[2020-09-24 04:47] LABS: NT Pro B Type Natriuretic Pept 1590 pg/mL (0-450); Procalcitonin 0.17 ng/mL (0-0.5)
[2020-09-24 04:58] LABS: Creatine Phosphokinase 105 U/L (39-308)
[2020-09-24 05:18] LABS: Alanine Aminotransferase 14 U/L (0-41); Aspartate Amino Transferase 17 U/L (0-40)
[2020-09-24] MEDS: sodium chloride 0.9% 1,000 ML 75 ML IV ×2 (05:25→19:32)
[2020-09-24] MEDS: enoxaparin 60 mg/0.6 mL Syringe SUBCUT ×2 (05:27→17:13)
[2020-09-24] MEDS: LORazepam 1 mg Tablet PO ×2 (05:30→22:45)
--- NOTE | 2020-09-24 07:00 | XRR_ITS ---
PROCEDURE INFORMATION: Exam: XR Chest, 1 View Exam date and time: 09/24/2020 6:04 AM Age: 74 years old Clinical indication: Dyspnea and shortness of breath; Patient HX: Covid+; Additional info: SOB TECHNIQUE: Imaging protocol: XR of the chest Views: 1 view. COMPARISON: Chest x-rays dated 09/23/2020, 09/22/2020, 09/20/2020, and 09/19/2020. FINDINGS: Lungs: There is a skin folds along the lateral aspect of the lungs bilaterally, giving the appearance of small pneumothoraces, however, lung markings are seen extending over the lucent areas towards the periphery. Persistent dense airspace opacity in the left lower lobe. The lungs are somewhat hyperinflated with increased lucency in the lung apices and increase interstitial markings in the lower lungs, suggestive of COPD. No large pleural effusion. Pleural spaces: See Lungs finding. Heart/Mediastinum: Stable cardiomediastinal silhouette. Bones/joints: Unremarkable. XR/XR chest 1V portable [id number] IMPRESSION: 1. Persistent dense airspace opacity in the left lower lobe, highly concerning for pneumonia. 2. COPD changes.
[2020-09-24 07:33] LABS: Glucose Point of Care 210 mg/dL (70-110)
[2020-09-24] MEDS: pantoprazole DR 40 mg Tablet PO (08:24)
[2020-09-24] MEDS: cetirizine 10 mg Tablet PO (08:24)
[2020-09-24] MEDS: zinc gluconate 50 mg Tablet PO (08:24)
[2020-09-24] MEDS: carvedilol 3.125 mg Tablet PO ×2 (08:24→17:13)
[2020-09-24] MEDS: aspirin 81 mg EC Tablet PO (08:24)
[2020-09-24] MEDS: ascorbic acid 500 mg Tablet 1000 MG PO (08:24)
[2020-09-24] MEDS: sertraline 50 mg Tablet 75 MG PO (08:24)
[2020-09-24] MEDS: cholecalciferol (vitamin D3) 1,000 unit Tablet 2000 UNIT PO (08:25)
--- NOTE | 2020-09-24 08:40 | P.PN_ITS ---
Subjective Subjective: Interval history: Patient denies any complaints this morning. Denies shortness of breath or chest pain. Discussed with physical therapist Edwin who reports that patient has very little initiative and does not participate much. Denies abdominal pain. Reports poor appetite and oral intake. Vitals/I&O/Wt Last Vital Signs Temp 97.8 F 09/24/20 04:21 Pulse 93 09/24/20 08:31 Resp 20 H 09/24/20 08:25 BP 117/73 09/24/20 04:00 Pulse Ox 95 09/24/20 08:25 09/23/20 09/24/20 09/24/20 22:59 06:59 14:59 Intake Total 790 / 2191.667 1200 / 3391.667 Output Total 300 / 1100 725 / 1825 Balance 490 / 1091.667 475 / 1566.667 Physical Exam Const: COMMON NORMALS: no acute distress and patient oriented x3 Resp: COMMON NORMALS: normal respiratory effort OTHER: Coarse breath sounds throughout. Cardio: COMMON NORMALS: regular rate, regular rhythm and S2 normal heart sound present RATE: regular rate RHYTHM: regular rhythm HEART SOUNDS: S2 normal heart sound present OTHER: No lower extremity edema GI: COMMON NORMALS: Normal to inspection, nondistended, normoactive bowel sounds present, Soft to palpation and non-tender PALPATION: Yes Soft to palpation Neuro: COMMON NORMALS: patient oriented x3 and no focal motor deficits Urinary Catheter Management^: Estrada: Cath Placed During This Visit: no Reason for Continuing Indwelling Catheter: Accurate Measurement of Urinary Output in Critically Ill Patients Data : 09/24/20 04:00 09/24/20 04:00 Micro: Microbiology 09/21/20 10:10 Urine Culture - Final Urine,Clean Catch A&P Assessment and plan (1) Acute respiratory failure with hypoxia: -Secondary to COPD, COVID-19 pneumonia, secondary bacterial pneumonia, pulmonary edema secondary to systolic CHF Plan: -Admit to viral ICU -Patient is DNR/DNI -Full dose Lovenox for hypercoagulability prophylaxis -Decadron -Insulin sliding scale, monitor blood sugars -Convalescent plasma, finished -Remdesivir, finished -De-escalate to Primaxin and azithromycin -Currently has developed acute renal failure, urine output initially decreased, but now improving, after fluid therapy, has 1055 urine output, creatinine down to 1.8, BUN up to 94, continue normal saline 75 cc an hour -Currently Lasix 40 mg IV twice daily is on hold due to creatinine of 1.8, BUN of 94 with potassium replacement, urine output 1450 cc, fluid restrictions 1500 cc, potassium replacement -Urine shows evidence of UTI, urine looked brown and turbid, patient has been on expanded antibiotic therapy Primaxin to cover for ESBL organisms, for the last 48 hours, renal ultrasound no significant obstructive uropathy -Sinus tachycardia, likely secondary from hypoxia, continue to monitor, on Coreg 3.25 twice daily -Sputum cultures, blood cultures, urine bacterial antigens -Covid PCR positive -Monitor respiratory status closely -High flow during the day, BiPAP during the night, BiPAP as needed -Vitamin C, zinc -Advair, Spiriva, albuterol -Incentive spirometer use, Acapella -Encouraged to get up out of bed Plan for today continue antibiotic therapy, hold diuresis, encourage ambulation, pulmonary toilet Status: Acute (2) Pneumonia due to COVID-19 virus: Status: Acute (3) Secondary bacterial pneumonia: Aspiration pneumonia cannot be ruled out Status: Acute (4) Systolic CHF: -Repeat echocardiogram shows: Left ventricle is mildly dilated. LV systolic function is moderate to severely reduced with EF of 30 to 35%. Above-mentioned regional wall motion abnormalities are seen. Mild to moderate aortic regurgitation is seen. Trace pulmonic regurgitation is seen. Compared to prior echocardiogram from 03/12/2020, LV function is reduced to 30 to 35% now. -Has no chest pain complaints, no palpitations complaints, has shortness of breath -Patient had a low probability obstructive CAD cardiac stress test in 2014 -Question is is it ischemic versus nonischemic, or could this be COVID-19 related myocarditis, or related to acute respiratory failure Plan: -Aspirin 81 mg -Atorvastatin 40 mg -Coreg 3.125 twice daily -Therapeutic Lovenox -Continue telemetry monitoring -At some point he will require cardiac intervention in the future, if that is what patient desires, but it seems like patient and family does not want to do aggressive interventions Status: Acute (5) Acute exacerbation of chronic obstructive pulmonary disease: Status: Acute (6) H/O asbestos exposure: Status: Acute (7) Diabetes 1.5, managed as type 2: Status: Acute (8) Acute renal failure: Multifactorial related to COVID-19, sepsis, suspect cardiorenal syndrome, diuretic therapy Status: Acute (9) Abdominal aortic aneurysm: 5.1 x 5.3 cm, without evidence of leak, or dissection Patient will require surgical evaluation, and monitoring of aortic aneurysm diameter size at some point once he is over Covid However patient and family do not want aggressive interventions But will discuss nearing discharge Status: Acute (10) Myocarditis due to COVID-19 virus: Status: Acute Additional A&P Information TSH is low at 0.08, free T3, T4 within normal limits, likely subclinical hyperthyroidism, will repeat TSH in 6 weeks PLAN: Continue holding diuretic as patient clinically appears dry and has poor oral intake. Reports that he only eats ice cream. Overall patient has poor prognosis and I think hospice would be appropriate next step. Continue antibiotics. We will request speech therapy to evaluate swallowing. Will consult hospice. Attestations Medical Necessity Statement*: Patient with multiorgan involvement requires close inpatient monitoring and treatment until deemed safe for discharge. Time Spent in Patient Care: 16 - 35 minutes Coding Level of Care Code Acute [place] [facility] for [facility] Fwd Diagnoses Acute respiratory failure with hypoxia J96.01 Pneumonia due to COVID-19 virus U07.1; J12.89 Secondary bacterial pneumonia J15.9 Systolic CHF I50.20 Acute exacerbation of chronic obstructive pulmonary disease J44.1 H/O asbestos exposure Z77.090 Diabetes 1.5, managed as type 2 E13.9 Acute renal failure N17.9 Abdominal aortic aneurysm I71.4 Myocarditis due to COVID-19 virus U07.1; I40.0
[2020-09-24] MEDS: dexamethasone 4 mg/mL INJ 6 MG IVP (11:39)
[2020-09-24 11:59] LABS: Glucose Point of Care 111 mg/dL (70-110)
--- NOTE | 2020-09-24 12:00 | PC.PT ---
PATIENT DISCHARGED FROM SKILLED PT SERVICES DUE TO TRANSFER TO HOSPICE.
[2020-09-24] MEDS: azithromycin 500 MG in sodium chloride 0.9% 250 ML 250 MG IV (15:39)
--- NOTE | 2020-09-24 16:25 | PC.OT ---
PATIENT DISCHARGED FROM SKILLED OT SERVICES DUE TO TRANSFER TO HOSPICE.
[2020-09-24 17:12] LABS: Glucose Point of Care 196 mg/dL (70-110)
[2020-09-24 19:36] LABS: Glucose Point of Care 176 mg/dL (70-110)
[2020-09-24] MEDS: atorvastatin 40 mg Tablet PO (21:34)
[2020-09-25] VITALS (33 sets, daily range): BP systolic 83–130; BP diastolic 47–74; PULSE 71–94; RESP 14–28; TEMP 36.3–37.1; O2SAT 86–100
[2020-09-25] MEDS: ipratropium-albuterol 3 mL Neb INHALATION ×4 (04:04→20:59)
[2020-09-25 05:08] LABS: Hematocrit 35.7 % (42.0-52.0); Hemoglobin 11.4 g/dL (11.7-16.6); Lymphocytes # 0.2 10^3/uL (0.8-4.8); Lymphocytes % 3.6 %; Mean Corpuscular HGB Conc 31.9 g/dL (30.0-36.0); Mean Corpuscular Hemoglobin 28.9 pg (28.0-34.0); Mean Corpuscular Volume 90.6 fL (80-94); Mean Platelet Volume 12.4 fL (7.4-10.4); Monocytes # 0.3 10^3/uL (0.2-0.9); Monocytes % 6.2 %; Neutrophils # 4.75 10^3/uL (1.8-7.7); Neutrophils % 89.6 %; Nucleated Red Blood Cells % 0 %; Platelet Count 111 10^3/cmm (130-400); Red Blood Count 3.94 10^6/uL (4.1-5.3); Red Cell Distribution Width 12.3 % (12.1-15.1); White Blood Count 5.3 10^3/uL (4.0-10.0)
[2020-09-25 05:30] LABS: ABG PH Result 7.47 (7.35-7.45); Arterial Blood Gas Hematocrit 38.7 % (42-52); Base Excess ABG 6.5 mmol/L (-2.0-2.0); Blood Gas Operator Identificat HARKR; Blood Gas Sample Site Brachial, right; Blood Gas Sample Type Arterial; HCO3 ABG 30.8 mmol/L (22-26); Oxygen Device NC
[2020-09-25 05:32] LABS: INR 1.22 (0.8-1.2)
[2020-09-25 05:37] LABS: Alanine Aminotransferase 13 U/L (0-41); Albumin Level 2.3 g/dL (3.5-5.2); Alkaline Phosphatase 55 IU/L (40-130); Aspartate Amino Transferase 17 U/L (0-40); Blood Urea Nitrogen 48 mg/dL (8-23); Calcium 7.8 mg/dL (8.5-10.5); Carbon Dioxide 31 mmol/L (22-29); Chloride 105 mmol/L (98-107); Globulin 2.2 g/dL (1.3-4.6); Glucose 113 mg/dL (65-115); Magnesium 2.2 mg/dL (1.7-2.3); Osmolality Calculated 305 mOsm/kg (285-295); Phosphorus 2.2 mg/dL (2.5-4.5); Sodium 141 mmol/L (136-145); Total Bilirubin 0.8 mg/dL (0.15-1.2); Total Protein 4.5 g/dL (6.6-8.7)
[2020-09-25 05:48] LABS: NT Pro B Type Natriuretic Pept 2153 pg/mL (0-450); Procalcitonin 0.14 ng/mL (0-0.5)
[2020-09-25 05:54] LABS: Anion Gap 8.6 (5-19); Potassium 3.6 mmol/L (3.5-5.1)
[2020-09-25 05:59] LABS: Creatine Phosphokinase 69 U/L (39-308)
[2020-09-25] MEDS: enoxaparin 60 mg/0.6 mL Syringe SUBCUT ×2 (06:00→18:04)
[2020-09-25 07:51] LABS: Glucose Point of Care 179 mg/dL (70-110)
[2020-09-25] MEDS: zinc gluconate 50 mg Tablet PO (08:34)
[2020-09-25] MEDS: carvedilol 3.125 mg Tablet PO ×2 (08:35→18:05)
[2020-09-25] MEDS: sertraline 50 mg Tablet 75 MG PO (08:35)
[2020-09-25] MEDS: cetirizine 10 mg Tablet PO (08:35)
[2020-09-25] MEDS: cholecalciferol (vitamin D3) 1,000 unit Tablet 2000 UNIT PO (08:35)
[2020-09-25] MEDS: pantoprazole DR 40 mg Tablet PO (08:36)
[2020-09-25] MEDS: LORazepam 1 mg Tablet PO ×3 (08:36→21:38)
[2020-09-25] MEDS: aspirin 81 mg EC Tablet PO (08:43)
[2020-09-25] MEDS: sodium chloride 0.9% 1,000 ML 75 ML IV (08:43)
[2020-09-25] MEDS: dexamethasone 4 mg/mL INJ 6 MG IVP (11:15)
[2020-09-25 11:27] LABS: Glucose Point of Care 121 mg/dL (70-110)
--- NOTE | 2020-09-25 16:12 | P.PN_ITS ---
Subjective Subjective: Interval history: Patient denies any complaints this morning. Denies shortness of breath or chest pain. He has very low initiative and does not want to participate with physical therapy. He does not want to remove Estrada catheter as this will make him get up and urinate. Reports that he does not want to walk because he has right hip pain for the last 12 years. I have discussed with patient's . Ms. Snyder reports that patient told her that he is ready to go and he does not understand why he is still around and got does not take him. He would not care for himself at home and his had to take care of him despite having multiple medical problems herself. It is very difficult for her to take care of him at home if he is not at least mobile. I had discussion with patient regarding hospice. He agreed to be evaluated. Clinically patient today appears to be doing slightly better. He was able to eat some. He had episode of anxiety earlier this morning and he liked the effect of Ativan. Platelets are Coming down and I expect it will plateau in a day or 2 Vitals/I&O/Wt Last Vital Signs Temp 98.7 F 09/25/20 07:38 Pulse 85 09/25/20 16:00 Resp 15 09/25/20 16:00 BP 113/63 09/25/20 16:00 Pulse Ox 98 09/25/20 16:00 09/25/20 09/25/20 09/25/20 06:59 14:59 22:59 Intake Total 200 / 1920 1108.75 / 1108.75 Output Total 725 / 1475 800 / 800 Balance -525 / 445 308.75 / 308.75 Physical Exam Const: COMMON NORMALS: no acute distress and patient oriented x3 Resp: COMMON NORMALS: normal respiratory effort OTHER: Coarse breath sounds throughout. Cardio: COMMON NORMALS: regular rate, regular rhythm and S2 normal heart sound present RATE: regular rate RHYTHM: regular rhythm HEART SOUNDS: S2 normal heart sound present OTHER: No lower extremity edema GI: COMMON NORMALS: Normal to inspection, nondistended, normoactive bowel sounds present, Soft to palpation and non-tender PALPATION: Yes Soft to palpation Neuro: COMMON NORMALS: patient oriented x3 and no focal motor deficits Urinary Catheter Management^: Estrada: Cath Placed During This Visit: no Reason for Continuing Indwelling Catheter: Accurate Measurement of Urinary Output in Critically Ill Patients Data : 09/25/20 03:15 09/25/20 03:15 A&P Assessment and plan (1) Acute respiratory failure with hypoxia: -Secondary to COPD, COVID-19 pneumonia, secondary bacterial pneumonia, pulmonary edema secondary to systolic CHF Plan: -Admit to viral ICU -Patient is DNR/DNI -Full dose Lovenox for hypercoagulability prophylaxis -Decadron -Insulin sliding scale, monitor blood sugars -Convalescent plasma, finished -Remdesivir, finished -De-escalate to Primaxin and azithromycin -Currently has developed acute renal failure, urine output initially decreased, but now improving, after fluid therapy, has 1055 urine output, creatinine down to 1.8, BUN up to 94, continue normal saline 75 cc an hour -Currently Lasix 40 mg IV twice daily is on hold due to creatinine of 1.8, BUN of 94 with potassium replacement, urine output 1450 cc, fluid restrictions 1500 cc, potassium replacement -Urine shows evidence of UTI, urine looked brown and turbid, patient has been on expanded antibiotic therapy Primaxin to cover for ESBL organisms, for the last 48 hours, renal ultrasound no significant obstructive uropathy -Sinus tachycardia, likely secondary from hypoxia, continue to monitor, on Coreg 3.25 twice daily -Sputum cultures, blood cultures, urine bacterial antigens -Covid PCR positive -Monitor respiratory status closely -High flow during the day, BiPAP during the night, BiPAP as needed -Vitamin C, zinc -Advair, Spiriva, albuterol -Incentive spirometer use, Acapella -Encouraged to get up out of bed Plan for today continue antibiotic therapy, hold diuresis, encourage ambulation, pulmonary toilet Status: Acute (2) Pneumonia due to COVID-19 virus: Status: Acute (3) Secondary bacterial pneumonia: Aspiration pneumonia cannot be ruled out Status: Acute (4) Systolic CHF: -Repeat echocardiogram shows: Left ventricle is mildly dilated. LV systolic function is moderate to severely reduced with EF of 30 to 35%. Above-mentioned regional wall motion abnormalities are seen. Mild to moderate aortic regurgitation is seen. Trace pulmonic regurgitation is seen. Compared to prior echocardiogram from 03/12/2020, LV function is reduced to 30 to 35% now. -Has no chest pain complaints, no palpitations complaints, has shortness of breath -Patient had a low probability obstructive CAD cardiac stress test in 2015 -Question is is it ischemic versus nonischemic, or could this be COVID-19 related myocarditis, or related to acute respiratory failure Plan: -Aspirin 81 mg -Atorvastatin 40 mg -Coreg 3.125 twice daily -Therapeutic Lovenox -Continue telemetry monitoring -At some point he will require cardiac intervention in the future, if that is what patient desires, but it seems like patient and family does not want to do aggressive interventions Status: Acute (5) Acute exacerbation of chronic obstructive pulmonary disease: Status: Acute (6) H/O asbestos exposure: Status: Acute (7) Diabetes 1.5, managed as type 2: Status: Acute (8) Acute renal failure: Multifactorial related to COVID-19, sepsis, suspect cardiorenal syndrome, diuretic therapy Status: Acute (9) Abdominal aortic aneurysm: 5.1 x 5.3 cm, without evidence of leak, or dissection Patient will require surgical evaluation, and monitoring of aortic aneurysm maria antonia meter size at some point once he is over Covid However patient and family do not want aggressive interventions But will discuss nearing discharge Status: Acute (10) Myocarditis due to COVID-19 virus: Status: Acute Additional A&P Information TSH is low at 0.08, free T3, T4 within normal limits, likely subclinical hyperthyroidism, will repeat TSH in 6 weeks Failure to thrive in adult. PLAN: Lasix was restarted and will continue with daily labs Continue Primaxin as it appears that patient clinically improving. Discussed regarding importance of physical therapy and patient agreed to participate. Hopefully we can remove Estrada catheter once patient is more active. Encouraged oral intake. Awaiting hospice evaluation. Attestations Medical Necessity Statement*: Patient with acute hypoxic respiratory failure and failure to thrive requires close inpatient monitoring and treatment until deemed safe for discharge. Coding Level of Care Code Acute [place] for [facility] Fwd Diagnoses Acute respiratory failure with hypoxia J96.01 Pneumonia due to COVID-19 virus U07.1; J12.89 Secondary bacterial pneumonia J15.9 Systolic CHF I50.20 Acute exacerbation of chronic obstructive pulmonary disease J44.1 H/O asbestos exposure Z77.090 Diabetes 1.5, managed as type 2 E13.9 Acute renal failure N17.9 Abdominal aortic aneurysm I71.4 Myocarditis due to COVID-19 virus U07.1; I40.0
[2020-09-25 16:58] LABS: Glucose Point of Care 169 mg/dL (70-110)
[2020-09-25] MEDS: atorvastatin 40 mg Tablet PO (20:50)
[2020-09-25] MEDS: FUROsemide 10 mg/mL SDV 4mL 40 MG IVP (20:50)
[2020-09-26] VITALS (21 sets, daily range): BP systolic 88–119; BP diastolic 51–81; PULSE 79–100; RESP 20–47; TEMP 36.8–36.9; O2SAT 72–98
[2020-09-26] MEDS: ipratropium-albuterol 3 mL Neb INHALATION ×2 (03:32→11:32)
[2020-09-26] MEDS: LORazepam 1 mg Tablet PO ×2 (03:59→12:42)
[2020-09-26] MEDS: enoxaparin 60 mg/0.6 mL Syringe SUBCUT (04:00)
[2020-09-26 04:58] LABS: Basophils % 0.1 %; Eosinophils % 0.2 %; Hematocrit 38.5 % (42.0-52.0); Hemoglobin 13.1 g/dL (11.7-16.6); Lymphocytes # 0.3 10^3/uL (0.8-4.8); Lymphocytes % 3.1 %; Mean Corpuscular Hemoglobin 29.6 pg (28.0-34.0); Mean Corpuscular Volume 87.1 fL (80-94); Mean Platelet Volume 11.8 fL (7.4-10.4); Monocytes # 0.6 10^3/uL (0.2-0.9); Monocytes % 5.4 %; Neutrophils # 9.42 10^3/uL (1.8-7.7); Neutrophils % 90.6 %; Nucleated Red Blood Cells % 0 %; Platelet Count 125 10^3/cmm (130-400); Red Blood Count 4.42 10^6/uL (4.1-5.3); Red Cell Distribution Width 12.3 % (12.1-15.1); White Blood Count 10.4 10^3/uL (4.0-10.0)
[2020-09-26 05:34] LABS: Alanine Aminotransferase 18 U/L (0-41); Albumin Level 2.7 g/dL (3.5-5.2); Alkaline Phosphatase 69 IU/L (40-130); Anion Gap 11.5 (5-19); Aspartate Amino Transferase 18 U/L (0-40); Blood Urea Nitrogen 40 mg/dL (8-23); Calcium 8.2 mg/dL (8.5-10.5); Carbon Dioxide 30 mmol/L (22-29); Chloride 102 mmol/L (98-107); Globulin 2.5 g/dL (1.3-4.6); Glucose 115 mg/dL (65-115); Osmolality Calculated 301 mOsm/kg (285-295); Potassium 3.5 mmol/L (3.5-5.1); Sodium 140 mmol/L (136-145); Total Bilirubin 0.9 mg/dL (0.15-1.2); Total Protein 5.2 g/dL (6.6-8.7)
[2020-09-26 07:58] LABS: Glucose Point of Care 143 mg/dL (70-110)
[2020-09-26] MEDS: aspirin 81 mg EC Tablet PO (08:43)
[2020-09-26] MEDS: cholecalciferol (vitamin D3) 1,000 unit Tablet 2000 UNIT PO (08:43)
[2020-09-26] MEDS: pantoprazole DR 40 mg Tablet PO (08:43)
[2020-09-26] MEDS: cetirizine 10 mg Tablet PO (08:43)
[2020-09-26] MEDS: zinc gluconate 50 mg Tablet PO (08:43)
[2020-09-26] MEDS: sertraline 50 mg Tablet 75 MG PO (08:43)
[2020-09-26] MEDS: carvedilol 3.125 mg Tablet PO (08:43)
--- NOTE | 2020-09-26 11:33 | PM.DCS ---
Discharge Providers Date of Admission: 09/16/20 12:46 Date of Discharge: September 26, 2020 Attending Provider at Admission: Danny Hansen MD Attending Provider at Discharge: Pavan Knox MD Primary Care Provider: PATSY Woods Diagnoses at Discharge Discharge Diagnosis (1) Acute respiratory failure with hypoxia: Status: Acute (2) Pneumonia due to COVID-19 virus: Status: Acute (3) Secondary bacterial pneumonia: Status: Acute (4) Systolic CHF: Status: Acute (5) Acute exacerbation of chronic obstructive pulmonary disease: Status: Acute (6) H/O asbestos exposure: Status: Acute (7) Diabetes 1.5, managed as type 2: Status: Acute (8) Acute renal failure: Status: Acute (9) Abdominal aortic aneurysm: Status: Acute (10) Myocarditis due to COVID-19 virus: Status: Acute Reason for Visit Reason for Visit: COVID, DYSPNEA Hospital Course Hospital Course Patient presented with shortness of breath and diagnosed with acute hypoxic respiratory failure secondary to COVID-19 pneumonia as well as secondary bacterial community-acquired pneumonia involving left lower lobe. Patient was treated with antibiotics and antivirals but unfortunately he continued to be very weak and did not have much progress. He has not been doing well lately and has been gradually declining. Hospice was discussed with the patient and he agreed to proceed. Patient's is also in agreement. This morning patient denies chest pain. Reports very minimal shortness of breath. We will continue with home oxygen and I will give patient 1 week of Levaquin. Since it appears that patient's oral intake slightly improved I will restart his home Lasix. Patient does not ambulate reports because of his chronic right hip pain for many years that gradually worsened. He is not in pain if not moving. He is neurologically intact. I think patient would benefit from anticoagulation given the fact that he is hypoxic. We will give 2 weeks of Eliquis at 2.5 mg twice daily. Physical Exam Narrative: EXAM NARRATIVE: Exam today shows coarse breath sounds throughout. Heart is regular. No lower extremity edema. Abdomen is soft and nontender with positive bowel sounds. Urinary Catheter Management^: Estrada: Cath Placed During This Visit: no Reason for Continuing Indwelling Catheter: Accurate Measurement of Urinary Output in Critically Ill Patients Discharge Data Data Completed and Pending: Completed Studies During Hospitalization Category Date Time Status CT angio chest PE protcl [id number] Stat Cat Scan 09/16/20 10:26 Completed XR chest 1V rashel ble [id number] Routine Exams 09/17/20 07:00 Completed XR chest 1V rashel ble [id number] Routine Exams 09/18/20 07:00 Completed XR chest 1V rashel ble [id number] Routine Exams 09/19/20 07:00 Completed XR chest 1V rashel ble [id number] Routine Exams 09/20/20 07:00 Completed XR chest 1V rashel ble [id number] Routine Exams 09/22/20 07:00 Completed XR chest 1V rashel ble [id number] Routine Exams 09/23/20 07:00 Completed XR chest 1V rashel ble [id number] Routine Exams 09/24/20 07:00 Completed XR chest 1V rashel ble [id number] Stat Exams 09/16/20 10:25 Completed CV echo complete* [id number] Routine Ultrasound 09/16/20 14:13 Completed US renal BI* [id number] Routine Ultrasound 09/21/20 11:51 Completed Pending at discharge Category Date Time Status Arterial Blood Ga s W/O Coox AM LABS Lab 09/21/20 04:57 Results Arterial Blood Ga s W/O Coox AM LABS Lab 09/24/20 04:00 Ordered Complete Blood Co unt w/Auto AM LABS Lab 09/27/20 04:00 Ordered Complete Blood Co unt w/Auto AM LABS Lab 09/28/20 04:00 Ordered Comprehensive Met abolic Panel AM LA BS Lab 09/27/20 04:00 Ordered Comprehensive Met abolic Panel AM LA BS Lab 09/28/20 04:00 Ordered Gram Stain Routin e Lab 09/17/20 00:53 Ordered Magnesium AM LABS Lab 09/27/20 04:00 Ordered Magnesium AM LABS Lab 09/28/20 04:00 Ordered Sputum Culture Ro utine Lab 09/17/20 00:[address] at Lab 09/16/20 18:00 Received Labs from last 24 hours 09/26/20 09/26/20 09/26/20 07:53 03:35 03:35 WBC 10.4 H RBC 4.42 Hgb 13.1 Hct 38.5 L MCV 87.1 MCH 29.6 MCHC 34.0 RDW 12.3 Plt Count 125 L MPV 11.8 H Neut % (Auto) 90.6 Lymph % (Auto) 3.1 [place] % (Auto) 5.4 Eos % (Auto) 0.2 Baso % (Auto) 0.1 Neut # (Auto) 9.42 H Lymph # (Auto) 0.3 L [place] # (Auto) 0.6 Eos # (Auto) 0.0 Baso # (Auto) 0.0 Nucleated RBC % (a uto) 0 Nucleated RBCs # 0.0 Sodium 140 Potassium 3.5 Chloride 102 Carbon Dioxide 30 H Anion Gap 11.5 BUN 40 H Creatinine 1.0 GFR Calculation Not Reportable Glucose 115 POC Glucose 143 H Calculated Osmolal ity 301 H Calcium 8.2 L Magnesium 2.0 Total Bilirubin 0.9 AST 18 ALT 18 Alkaline Phosphata se 69 Total Protein 5.2 L Albumin 2.7 L Globulin 2.5 09/25/20 16:55 WBC RBC Hgb Hct MCV MCH MCHC RDW Plt Count MPV Neut % (Auto) Lymph % (Auto) [place] % (Auto) Eos % (Auto) Baso % (Auto) Neut # (Auto) Lymph # (Auto) [place] # (Auto) Eos # (Auto) Baso # (Auto) Nucleated RBC % (a uto) Nucleated RBCs # Sodium Potassium Chloride Carbon Dioxide Anion Gap BUN Creatinine GFR Calculation Glucose POC Glucose 169 H Calculated Osmolal ity Calcium Magnesium Total Bilirubin AST ALT Alkaline Phosphata se Total Protein Albumin Globulin Vitals: Last Vital Signs Temp 98.2 F 09/26/20 03:00 Pulse 95 09/26/20 10:00 Resp 23 H 09/26/20 10:00 BP 91/57 09/26/20 10:00 Pulse Ox 93 09/26/20 10:00 Discharge Plan Discharge Patient Disposition: Hospice - Home Condition: Stable Prescriptions: New acetaminophen 325 mg Tablet 650 mg PO Q6H PRN (Reason: Mild/Mod Pain Or Temp >/= 101) Qty: 30 RF: 0 pantoprazole 40 mg Tablet,Delayed Release (Dr/Ec) 40 mg PO DAILY Qty: 30 RF: 0 levofloxacin 750 mg tablet 750 mg PO DAILY 7 Days Qty: 7 RF: 0 Eliquis 2.5 mg tablet 2.5 mg PO BID Qty: 28 RF: 0 Continued potassium chloride 20 mEq tablet extended release 20 meq PO DAILY@05 RF: 0 furosemide 40 mg tablet 40 mg PO DAILY@05 RF: 0 lorazepam 1 mg tablet 1 mg PO TID PRN (Reason: Anxiety) RF: 0 albuterol sulfate [ProAir HFA] 90 mcg/actuation HFA aerosol inhaler 2 puff INHALATION Q6H PRN (Reason: Shortness Of Breath) RF: 0 albuterol sulfate 2.5 mg /3 mL (0.083 %) solution for nebulization 2.5 mg INHALATION Q6H PRN (Reason: shortness of breath or wheezing) RF: 0 budesonide-formoterol [Symbicort] 160-4.5 mcg/actuation HFA aerosol inhaler 2 puff INHALATION BID Qty: 10.2 RF: 3 cetirizine 10 mg Tablet 10 mg PO DAILY@05 RF: 0 prednisone 5 mg Tablet 5 mg PO DAILY RF: 0 sertraline 50 mg Tablet 75 mg PO DAILY RF: 0 Vitamin D3 50 mcg (2,000 unit) Capsule 50 mcg PO DAILY@05 RF: 0 Spiriva Respimat 2.5 mcg/actuation mist 2 inh INHALATION DAILY@05 RF: 0 Discontinued procyanidolic oligomers 50 mg capsule 200 mg PO DAILY@05 RF: 0 cinnamon bark 500 mg capsule 1,000 mg PO DAILY@05 RF: 0 Qunal 100 mg capsule 100 mg PO DAILY RF: 0 Discharge Orders: Discharge Order (Routine); Ordered 09/26/20 Ordered By: Pavan Knox Referrals: Qiana Mercado FNP [Primary Care Provider] - None Discharge Diet: Advance as tolerated Discharge Activity: Increase activity as tolerated Activity Restrictions/Additional Instructions: Please discuss with your hospice physician or nurse if you have any questions. Please continue using oxygen at 3 L by nasal cannula titrated for oxygen saturation above 90%. Discharge Attestations Time Spent in Discharge Care*: greater than 30 min Quality Metrics Clinical Quality Measures During this hospital stay, did patient experience: None Coding Level of Care Code Acute Rn Ent for [facility] Fwd Diagnoses Acute respiratory failure with hypoxia J96.01 Pneumonia due to COVID-19 virus U07.1; J12.89 Secondary bacterial pneumonia J15.9 Systolic CHF I50.20 Acute exacerbation of chronic obstructive pulmonary disease J44.1 H/O asbestos exposure Z77.090 Diabetes 1.5, managed as type 2 E13.9 Acute renal failure N17.9 Abdominal aortic aneurysm I71.4 Myocarditis due to COVID-19 virus U07.1; I40.0
[2020-09-26] MEDS: FUROsemide 10 mg/mL SDV 4mL 40 MG IVP (11:41)
[2020-09-26] MEDS: dexamethasone 4 mg/mL INJ 6 MG IVP (11:41)
[2020-09-26 12:03] LABS: Glucose Point of Care 101 mg/dL (70-110)
== END 2020-09-26 16:27 | disposition hospice, home (50) | DRG 177 ==
LOC: ER 12:44 → MS 2A 13:22
PROVIDERS: Admitting Provider Family Medicine; Emergency Provider Family Medicine; PCP Nurse Practitioner; Visit Provider Internal Medicine
DX: U07.1 COVID-19 (principal); J12.82 Pneumonia due to coronavirus disease 2019; I50.21 Acute systolic (congestive) heart failure; J96.01 Acute respiratory failure with hypoxia; J15.9 Unspecified bacterial pneumonia; I40.0 Infective myocarditis; N17.9 Acute kidney failure, unspecified; N39.0 Urinary tract infection, site not specified; J43.9 Emphysema, unspecified; Z99.81 Dependence on supplemental oxygen; Z87.891 Personal history of nicotine dependence; Z77.090 Contact with and (suspected) exposure to asbestos; E11.9 Type 2 diabetes mellitus without complications; F41.9 Anxiety disorder, unspecified; Z66 Do not resuscitate; I35.1 Nonrheumatic aortic (valve) insufficiency; I71.4 Abdominal aortic aneurysm, without rupture; B97.29 Other coronavirus as the cause of diseases classified elsewhere; G89.29 Other chronic pain; M25.551 Pain in right hip; Z79.51 Long term (current) use of inhaled steroids
CPT/HCPCS: 12345; 36415; 36416; 36430; 36600; 51702; 51798; 71045; 71275; 76770; 80051; 80053; 80202; 81001; 82330; 82550; 82803; 82805; 82962; 83605; 83735; 83880; 84100; 84145; 84436; 84443; 84481; 84484; 85025; 85378; 85610; 86140; 86403; 86900; 86927; 87040; 87070; 87086; 87205; 87635; 87641; 92610; 93005; 93306; 94640; 94660; 94664; 96372; 97110; 97162; 97167; 97530; 97535; 99283; J0456; J0743; J1100; J1650; J1815; J1940; J1956; J2405; J2543; J3370; J7030; J7050; P9017; Q9967